=== PATIENT | female | born 1995 | race African-American/Black ===

== ENCOUNTER 2018-07-30 00:26 | Outpatient (CLI) | payer MEDICAID, SELFPAY ==
--- NOTE | 2018-07-30 07:50 | DI.US_ITS ---
Many abnormalities cannot be diagnosed. A normal exam does not exclude a congenital anomaly. Radiology No. LMP: Exam Date: 07/30/18 [facility] wks days on EDC ([facility]) Confirmed: HISTORY: ? MONOAMNIOTIC TWINS, 030.11 PREDICTED GESTATIONAL AGE NUMBER 7.3 weeks with a range of 6.3 week to 8.3 weeks. 2 Determined by___1STUS___LMP__X_CRL Info. pertaining to fetus # Baby A PLACENTA PRESENTATION Grade 0 Cephalic___ Anterior___Posterior___ Breech____ Right Left Transverse(head right___ Fundal___Low-lying___Previa___ Transverse(head left___ Varying BIOMETRY AMNIOTIC FLUID BPD: mm weeks Normal HC: mm weeks AC: mm weeks FL: mm weeks AMNIOTIC FLUID INDEX >26 WK CRL: 13 mm 7.3 weeks Cisterna Magna: mm CI: RUQ: LUQ Cerebellum: cm EFW: grams Percentile RLQ: LLQ Total: cms Composite AGE= 7.3 wks EDC by US___03/15/19 BIOPHYSICAL PROFILE ANATOMY IDENTIFIED SCORE 0/2 Heart: 4-Chamber___Rate:BPM__153___ LVOT: RVOT: Amniotic Fluid(>2cms)____ Stomach: Kidneys: Respirations (>30 secs) Bladder: Post. Fossa: Body Flex/Extension 3 vessel cord: Ventricles: cord insertion: Lips:____ Extremity Flex/Extension spinal morphology: Nose: Total Score= Palate: NS=not seen Many abnormalities cannot be diagnosed. A normal exam does not exclude a congenital anomaly. Radiology No. LMP: Exam Date: 07/30/18 [facility] wks days on EDC ([facility]) Confirmed: HISTORY: PREDICTED GESTATIONAL AGE NUMBER 7.3 weeks with a range of 6.3 week to 8.3 weeks. 2 Determined by___1STUS___LMP__X_CRL Info. pertaining to fetus # Baby B PLACENTA PRESENTATION Grade 0 Cephalic___ Anterior___Posterior___ Breech____ Right Left Transverse(head right___ Fundal___Low-lying___Previa___ Transverse(head left___ Varying BIOMETRY AMNIOTIC FLUID BPD: mm weeks Normal HC: mm weeks AC: mm weeks FL: mm weeks AMNIOTIC FLUID INDEX >26 WK CRL: 12 mm 7.3 weeks Cisterna Magna: mm CI: RUQ: LUQ Cerebellum: cm EFW: grams Percentile RLQ: LLQ Total: cms Composite AGE= 7.3 wks EDC by US 03/15/19____ BIOPHYSICAL PROFILE ANATOMY IDENTIFIED SCORE 0/2 Heart: 4-Chamber___Rate:BPM_150____ LVOT: RVOT: Amniotic Fluid(>2cms)____ Stomach: Kidneys: Respirations (>30 secs) Bladder: Post. Fossa: Body Flex/Extension 3 vessel cord: Ventricles: cord insertion: Lips:____ Extremity Flex/Extension spinal morphology: Nose: Total Score= Palate: NS=not seen Comparison is made with 07/10/17. Transabdominal and transvaginal exams were performed. A monochorionic diamniotic twin gestation is present. The crown rump length measurements correspond to 7 weeks 3 days. A 2 cm. left ovarian cyst is seen. The right ovary is unremarkable. IMPRESSION: Twin gestation which appears diamniotic and monochorionic. Both pole measurements correspond to 7 weeks 3 days.
== END 2018-07-30 00:46 ==
PROVIDERS: PCP Nurse Practitioner Family; Visit Provider Obstetrics & Gynecology
DX: O30.001 Twin pregnancy, unspecified number of placenta and unspecified number of amniotic sacs, first trimester (principal)
CPT/HCPCS: 76801; 76802

== ENCOUNTER 2018-08-22 10:33 | Outpatient (CLI) | payer MEDICAID, SELFPAY ==
[2018-08-22 11:05] LABS: Absolute Basophil Count 0.01 k/cumm (0.0-0.2); Absolute Eosinophil Count 0.04 k/cumm (0.0-0.7); Absolute Monocyte Count 0.38 k/cumm (0.11-0.7); Absolute Neutrophil Count 3.64 k/cumm (1.2-6.7); Basophils % 0.2; Eosinophils % 0.7; HCT 37.1 % (36.0-46.0); HGB 12.3 g/dL (12.0-15.5); Lymphocytes % 32.9; Mean Corp. HGB Concentration 33.2 g/dL (32.0-36.0); Mean Corpuscular Hemoglobin 26.1 pg (27.0-33.0); Mean Corpuscular Volume 78.6 fL (80-95); Mean Platelet Volume 10.8 fL (8.0-11.0); Monocytes % 6.3; Neutrophils % 59.9; Platelet Count 215 x1000/uL (130-400); RBC 4.72 m/cumm (4.00-5.20); RBC Distribution Width 14.7 % (11.7-14.6); White Blood Cell Count 6.07 k/cumm (4.4-10.8)
[2018-08-22 11:06] LABS: Glucose,1 Hr (Glucola) 97 mg/dL (80-140)
[2018-08-22 11:51] LABS: TSH (W/Ref FT4) 0.33 uIU/mL (0.358-3.74)
[2018-08-22 12:11] LABS: FREE T4 1.17 ng/dL (0.76-1.46)
[2018-08-24 11:34] LABS: HIV-1/2 Ag & Ab Screen Negative (NEGAT)
[2018-08-25 10:25] LABS: Hepatitis C Ab w Rflx HCV PCR Negative (NEGAT)
[2018-08-25 11:22] LABS: Hepatitis B Surface Ag Negative (NEGAT)
[2018-08-25 12:01] LABS: Rubella IgG Ab (UVM) Negative; Syphilis Serology (RPR) Negative (Negative)
[2018-08-25 12:57] LABS: Varicella IgG Antibody Equivocal
== END 2018-08-22 10:53 ==
PROVIDERS: PCP Nurse Practitioner Family; Visit Provider Advanced Practice Midwife
DX: Z34.91 Encounter for supervision of normal pregnancy, unspecified, first trimester (principal); O09.291 Supervision of pregnancy with other poor reproductive or obstetric history, first trimester; Z11.4 Encounter for screening for human immunodeficiency virus [HIV]; Z11.59 Encounter for screening for other viral diseases; Z01.84 Encounter for antibody response examination; Z11.3 Encounter for screening for infections with a predominantly sexual mode of transmission
CPT/HCPCS: 36415; 80055; 82950; 86787; 86803; 86850; 86900; 86901; 87340; 87389; 84439; 84443; 86592; 86762

== ENCOUNTER 2019-01-14 06:20 | Inpatient (IN) | payer MEDICAID, SELFPAY ==
[2019-01-14] MEDS: Oxytocin 10 UNITS/ML VIAL IM (06:54)
[2019-01-14] MEDS: Ketorolac 30 MG/ML VIAL (07:07)
[2019-01-14 07:28] LABS: HCT 33.4 % (36.0-46.0); HGB 11.3 g/dL (12.0-15.5); Mean Corp. HGB Concentration 33.8 g/dL (32.0-36.0); Mean Corpuscular Hemoglobin 26.6 pg (27.0-33.0); Mean Corpuscular Volume 78.6 fL (80-95); Mean Platelet Volume 11.7 fL (8.0-11.0); Platelet Count 160 x1000/uL (130-400); RBC 4.25 m/cumm (4.00-5.20); RBC Distribution Width 13.6 % (11.7-14.6); White Blood Cell Count 8.29 k/cumm (4.4-10.8)
[2019-01-14] MEDS: oxyCODONE 5 mg/Acetaminophen 325 mg TAB 2 TAB PO (07:32)
[2019-01-14 08:02] LABS: *AMPHETAMINES SCREEN URINE Negative (Negative); *BARBITURATES SCREEN URINE Negative (Negative); *BENZODIAZEPINES SCREEN URINE Negative (Negative); Cannabinoids THC Negative (Negative); Cocaine Screen,Urine Negative (Negative); METHADONE URINE SCREEN Negative (Negative); OPIATES URINE SCREEN Negative (Negative)
[2019-01-14 08:03] LABS: Tricyclic Antidepressants Negative (Negative)
--- NOTE | 2019-01-14 08:07 | W.PM.HP.N ---
Date of service: 01/14/19 Time of Service: 08:07 Assessment and Plan (1) Twin : Current visit: Yes Status: Acute Spontaneous labor and spontaneous vaginal delivery of diamniotic monochorionic twin gestation. Twins of will be stabilized and transported to the [facility]. Patient requests discharge today. We will make sure that she is hemodynamically stable prior to discharge. History of Present Illness Chief Complaint: labor 31 weeks 3 days Narrative: Patient is a 23-year-old G3, P1 female with monochorionic diamniotic twin gestation who awoke this morning approximately 05 45 and experienced significant vaginal pressure and uterine contractions. She presented to the emergency room at [facility] via ambulance and was diagnosed with labor and arrived on the center with advanced cervical dilatation. Shortly after arrival she had spontaneous vaginal delivery of a viable female infant. was handed off to waiting pediatric team. Second viable was delivered double footling breech without complications and was also cared for by the pediatric team. Currently weights and scores are pending. Placenta delivered spontaneously with a normal configuration blood loss 200 cc. She is sustained a first-degree labial laceration did not require repair. She is was administered oxytocin 10 mg IM after the second twin was born. Her admission labs are currently pending. Review of Systems Constitutional Reports as per [facility] Medical History Twin (Acute) Hx of pre-eclampsia in prior , currently (Acute) Goiter (Chronic) Wears glasses (Chronic) Chronic low back pain (Resolved 07/01/14) Depression (Chronic) History of illicit drug use (Acute) Tobacco abuse disorder (Acute) Preeclampsia in period (Resolved) Abscess of buttock, right (Resolved) Asthma (Resolved) Cutaneous abscess of buttock (Resolved 12/12/16) Dysmenorrhea (Resolved) General counselling and advice on contraception (Resolved 03/27/18) Menorrhagia (Resolved) CSA age 8 (Inactive) Surgical History Cholecystectomy (Resolved) Tooth extraction (Inactive) Social History Smoking/Tobacco Use Status: Current every day Alcohol Intake: former Drug use: Never Substance use type: former substance user Number of Children: 1 Do you feel safe in your relationship?: Yes Female Reproductive History Menstrual control method: none History History 3 Para 2 Hx # Term Pregnancies 2 Multiple births 0 Hx # Pregnancies 0 Ectopic pregnancies 0 AB induced 0 Hx Number of Living Children 1 AB spontaneous 0 Past Pregnancies Del. Date GA/Weeks # Outcome Route Wgt Sex Labor Lgth Anesthesia Location Prov Complic 12/01/16 37 No Unsuccessful vaginal 4 lb Female [facility] -[facility] 02/12/18 39 No Successful vaginal 7 lb 7 oz Female 8 hrs regional [place] - Dr. Tellez Delivery Date: 02/12/18 On 08/07/18 @ 13:25 Zaynab Cotter Infant name: Anne. IOL for gestational HTN Delivery Date: 12/01/16 On 08/07/18 @ 13:26 Zaynab Cotter IUFD diagnosed at presentation. Spontaneous labor delivered vaginally. Diagnosed with preeclampsia and treated with labetalol for several months . Positive UDS at the time of presentation in labor. Meds Home Medications Medication Instructions Recorded Confirmed Type vit no.95-ferrous 1 tab PO DAILY #90 tab-cap 07/17/18 01/07/19 Rx fumarate 28 mg-folic acid 800 mcg tablet aspirin 81 mg tablet,delayed 81 mg PO DAILY #90 tab 08/07/18 01/07/19 Rx release fluocinonide-emollient 0.05 % 1 applic TP BID #30 gm 01/07/19 01/07/19 Rx topical cream fluoxetine 40 mg capsule 40 mg PO DAILY #60 cap 01/07/19 01/07/19 Rx Allergies Allergy/AdvReac Type Severity Reaction Status Date / Time acetaminophen AdvReac Intermediate Nausea Unverified 01/07/19 14:45 ibuprofen AdvReac Intermediate Intestinal Unverified 01/07/19 14:45 Cramping NSAIDS (Non-Steroidal AdvReac Intermediate Nausea Unverified 01/07/19 14:45 Anti-Inflamma vicryl stitches AdvReac Intermediate infection Uncoded 01/07/19 14:45 in skin Exam Const General: in distress Nutritional Appearance: obese Orientation: alert, awake and oriented x3 OB/External & Speculum: Manual OB Exam: dilated 10, effaced fully and station '+3 Amniotic Fluid: meconium Results Labs : 01/14/19 07:02 Laboratory Results - last 24 hr 01/14/19 01/14/19 01/14/19 07:02 07:02 07:33 WBC 8.29 RBC 4.25 Hgb 11.3 L Hct 33.4 L MCV 78.6 L MCH 26.6 L MCHC 33.8 RDW 13.6 Plt Count 160 MPV 11.7 H Opiates Screen Cancelled Urine Opiates Screen Negative Blood Oxycodone Screen Cancelled Blood Methadone Screen Cancelled Urine Methadone Screen Negative Bld Barbiturates Scrn Cancelled Ur Barbiturates Screen Negative Ur Tricyclics Screen Negative Bld Phencyclidine Scrn Cancelled Bld Amphetamines Scrn Cancelled Ur Amphetamines Screen Negative Bl Methamphetamines Sn Cancelled Bl Benzodiazepine Scrn Cancelled U Benzodiazepines Scrn Negative Cocaine Screen Cancelled Urine Cocaine Screen Negative Bld Cannabinoid Screen Cancelled Ur THC Screen Negative U Rx/OTC Drugs Detect Ur Rx/OTC Suspect Drug Chain of Custody Drug Screen Comment Cancelled 01/14/19 Unknown WBC RBC Hgb Hct MCV MCH MCHC RDW Plt Count MPV Opiates Screen Urine Opiates Screen Blood Oxycodone Screen Blood Methadone Screen Urine Methadone Screen Bld Barbiturates Scrn Ur Barbiturates Screen Ur Tricyclics Screen Bld Phencyclidine Scrn Bld Amphetamines Scrn Ur Amphetamines Screen Bl Methamphetamines Sn Bl Benzodiazepine Scrn U Benzodiazepines Scrn Cocaine Screen Urine Cocaine Screen Bld Cannabinoid Screen Ur THC Screen U Rx/OTC Drugs Detect Cancelled Ur Rx/OTC Suspect Drug Cancelled Chain of Custody Cancelled Drug Screen Comment
--- NOTE | 2019-01-14 08:14 | HPE_ITS ---
Date of service: 01/14/19 Time of Service: 08:07 Assessment and Plan (1) Twin : Current visit: Yes Status: Acute Spontaneous labor and spontaneous vaginal delivery of diamniotic monochorionic twin gestation. Twins of will be stabilized and transported to the [facility]. Patient requests discharge today. We will make sure that she is hemodynamically stable prior to discharge. History of Present Illness Chief Complaint: labor 31 weeks 3 days Narrative: Patient is a 23-ye ar-old G3, P1 female with monochorionic diamniotic twin gestation who awoke this morning approximately 05 45 and experienced significant vaginal pressure and uterine contractions. She presented to the emergency room at [facility] via ambulance and was diagnosed with labor and arrived on the center with advanced cervical dilatation. Shortly after arrival she had spontaneous vaginal delivery of a viable female infant. Infant was handed off to waiting pediatric team. Second viable was delivered double footling breech without complications and was also cared for by the pediatric team. Currently weights and scores are pending. Placenta delivered spontaneously with a normal configuration blood loss 200 cc. She is sustained a first-degree labial laceration did not require repair. She is was administered oxytocin 10 mg IM after the second twin was born. Her admission labs are currently pending. Review of Systems Constitutional Reports as per [facility] Medical History Twin (Acute) Hx of pre-eclampsia in prior , currently (Acute) Goiter (Chronic) Wears glasses (Chronic) Chronic low back pain (Resolved 07/01/14) Depression (Chronic) History of illicit drug use (Acute) Tobacco abuse disorder (Acute) Preeclampsia in period (Resolved) Abscess of buttock, right (Resolved) Asthma (Resolved) Cutaneous abscess of buttock (Resolved 12/12/16) Dysmenorrhea (Resolved) General counselling and advice on contraception (Resolved 03/27/18) Menorrhagia (Resolved) CSA age 8 (Inactive) Surgical History Cholecystectomy (Resolved) Tooth extraction (Inactive) Social History Smoking/Tobacco Use Status: Current every day Alcohol Intake: former Drug use: Never Substance use type: former substance user Number of Children: 1 Do you feel safe in your relationship?: Yes Female Reproductive History Menstrual control method: none History History 3 Para 2 Hx # Term Pregnancies 2 Multiple births 0 Hx # Pregnancies 0 Ectopic pregnancies 0 AB induced 0 Hx Number of Living Children 1 AB spontaneous 0 Past Pregnancies Del. Date GA/Weeks # Outcome Route Wgt Sex Labor Lgth Anesthesia Location Prov Complic 12/01/16 37 No Unsuccessful vaginal 4 lb Female [facility] 02/12/18 39 No Successful vaginal 7 lb 7 oz Female 8 hrs regional [place] [facility] Dr. Tellez Delivery Date: 02/12/18 On 08/07/18 @ 13:25 Zaynab Cotter name: Anne. IOL for gestational HTN Delivery Date: 12/01/16 On 08/07/18 @ 13:26 Zaynab Cotter IUFD diagnosed at presentation. Spontaneous labor delivered vaginally. Diagnosed with preeclampsia and treated with labetalol for several months . Positive UDS at the time of presentation in labor. Meds Home Medications Medication Instructions Recorded Confirmed Type vit no.95-ferrous 1 tab PO DAILY #90 tab-cap 07/17/18 01/07/19 Rx fumarate 28 mg-folic acid 800 mcg tablet aspirin 81 mg tablet,delayed 81 mg PO DAILY #90 tab 08/07/18 01/07/19 Rx release fluocinonide-emollient 0.05 % 1 applic TP BID #30 gm 01/07/19 01/07/19 Rx topical cream fluoxetine 40 mg capsule 40 mg PO DAILY #60 cap 01/07/19 01/07/19 Rx Allergies Allergy/AdvReac Type Severity Reaction Status Date / Time acetaminophen AdvReac Intermediate Nausea Unverified 01/07/19 14:45 ibuprofen AdvReac Intermediate Intestinal Unverified 01/07/19 14:45 Cramping NSAIDS (Non-Steroidal AdvReac Intermediate Nausea Unverified 01/07/19 14:45 Anti-Inflamma vicryl stitches AdvReac Intermediate infection Uncoded 01/07/19 14:45 in skin Exam Const General: in distress Nutritional Appearance: obese Orientation: alert, awake and oriented x3 OB/External & Speculum: Manual OB Exam: dilated 10, effaced fully and station '+3 Amniotic Fluid: meconium Results Labs : 01/14/19 07:02 Laboratory Results - last 24 hr 01/14/19 01/14/19 01/14/19 07:02 07:02 07:33 WBC 8.29 RBC 4.25 Hgb 11.3 L Hct 33.4 L MCV 78.6 L MCH 26.6 L MCHC 33.8 RDW 13.6 Plt Count 160 MPV 11.7 H Opiates Screen Cancelled Urine Opiates Screen Negative Blood Oxycodone Screen Cancelled Blood Methadone Screen Cancelled Urine Methadone Screen Negative Bld Barbiturates Scrn Cancelled Ur Barbiturates Screen Negative Ur Tricyclics Screen Negative Bld Phencyclidine Scrn Cancelled Bld Amphetamines Scrn Cancelled Ur Amphetamines Screen Negative Bl Methamphetamines Sn Cancelled Bl Benzodiazepine Scrn Cancelled U Benzodiazepines Scrn Negative Cocaine Screen Cancelled Urine Cocaine Screen Negative Bld Cannabinoid Screen Cancelled Ur THC Screen Negative U Rx/OTC Drugs Detect Ur Rx/OTC Suspect Drug Chain of Custody Drug Screen Comment Cancelled 01/14/19 Unknown WBC RBC Hgb Hct MCV MCH MCHC RDW Plt Count MPV Opiates Screen Urine Opiates Screen Blood Oxycodone Screen Blood Methadone Screen Urine Methadone Screen Bld Barbiturates Scrn Ur Barbiturates Screen Ur Tricyclics Screen Bld Phencyclidine Scrn Bld Amphetamines Scrn Ur Amphetamines Screen Bl Methamphetamines Sn Bl Benzodiazepine Scrn U Benzodiazepines Scrn Cocaine Screen Urine Cocaine Screen Bld Cannabinoid Screen Ur THC Screen U Rx/OTC Drugs Detect Cancelled Ur Rx/OTC Suspect Drug Cancelled Chain of Custody Cancelled Drug Screen Comment
[2019-01-14] MEDS: miSOPROStol 200 MCG TAB 400 MCG SL (08:15)
--- NOTE | 2019-01-14 12:01 | PDOC.CMPRO ---
- If Service Date Differs Date of service: 01/14/19 Time of Service: 12:01 Care Management Progress Note CM was contacted by OB to set up transportation for Sugar to [facility] at discharge to be transported to be with her twins. CM contacted [facility] who will provide the transportation at 1230 this afternoon. Sugar will meet with Johnny the Plant And Maintenance Technician at [facility] to arrange stay at [facility] when she arrives. CM contact Johnny directly to provide Pt's support upon her arrival.
--- NOTE | 2019-01-14 14:06 | CMPROGNOTE_ITS ---
- If Service Date Differs Date of service: 01/14/19 Time of Service: 12:01 Care Management Progress Note CM was contacted by OB to set up transportation for Sugar to [facility] at discharge to be transported to be with her twins. CM contacted [facility] who will provide the transportation at 1230 this afternoon. Sugar will meet with Johnny the Hardware Engineering Manager at [facility] to arrange stay at [facility] when she arrives. CM contact Johnny directly to provide Pt's support upon her arrival.
[2019-01-15] MEDS: miSOPROStol 200 MCG TAB 400 MCG SL (15:54)
== END 2019-01-14 13:10 | disposition left against medical advice (07) | DRG 807 ==
PROVIDERS: Admitting Provider Obstetrics & Gynecology Gynecology; PCP Nurse Practitioner Family; Visit Provider Obstetrics & Gynecology Gynecology
DX: O60.14X2 Preterm labor third trimester with preterm delivery third trimester, fetus 2 (principal); Z37.2 Twins, both liveborn; O60.14X1 Preterm labor third trimester with preterm delivery third trimester, fetus 1; Z3A.31 31 weeks gestation of pregnancy; O32.8XX2 Maternal care for other malpresentation of fetus, fetus 2; O30.033 Twin pregnancy, monochorionic/diamniotic, third trimester; O99.334 Smoking (tobacco) complicating childbirth; Z53.21 Procedure and treatment not carried out due to patient leaving prior to being seen by health care provider; O77.0 Labor and delivery complicated by meconium in amniotic fluid; O62.3 Precipitate labor; F17.210 Nicotine dependence, cigarettes, uncomplicated
CPT/HCPCS: 36415; 80307; 85027; 99222; J1885; J2590; J3490

== ENCOUNTER 2019-04-21 13:21 | Outpatient (REF) | payer MEDICAID, SELFPAY ==
[2019-04-21 19:04] LABS: ALT 19 U/L (14-59); AST 13 U/L (15-37); Alkaline Phosphatase 64 U/L (46-116); Amylase 36 U/L (25-115); Anion Gap 8.4 mmol/L (3-11); BUN 10 mg/dL (7-18); Bilirubin, Total 0.3 mg/dL (0.2-1.0); CO2 25.6 mmol/L (21.0-32.0); CREATININE 0.73 mg/dL (0.55-1.02); Calcium 8.8 mg/dL (8.5-10.1); Chloride 106 mmol/L (98-107); Glucose 84 mg/dL (70-100); Lipase 99 U/L (73-393); Potassium 4.7 mmol/L (3.5-5.1); Sodium 140 mmol/L (136-145); TSH (W/Ref FT4) 0.42 uIU/mL (0.36-3.74); Total Protein 7.5 g/dL (6.4-8.2)
== END 2019-04-21 13:41 ==
LOC: NCHCN 13:21
PROVIDERS: Nurse Practitioner; PCP Nurse Practitioner Family; Visit Provider Nurse Practitioner Family
DX: R10.9 Unspecified abdominal pain (principal)
CPT/HCPCS: 80053; 83690; 82150; 84443

== ENCOUNTER 2019-05-11 01:03 | Outpatient (CLI) | payer MEDICAID, SELFPAY ==
--- NOTE | 2019-05-11 12:07 | DI.US_ITS ---
EXAM: US ABDOMEN CLINICAL HISTORY: ABDOMINAL PAIN R10.9. TECHNIQUE: Ultrasound performed using standard protocol. COMPARISON: US OB 1st trimester twins from 07/30/2018 FINDINGS: Visualized liver parenchyma is normal in appearance. There is no evidence biliary dilatation. Gallb ladder has been surgically removed. Kidneys and spleen are unremarkable. Abdominal aorta and IVC ar e of normal diameter. Pancreas appears intact as visualized. IMPRESSION: Negative abdominal ultrasound post cholecystectomy
== END 2019-05-11 01:23 ==
PROVIDERS: PCP Nurse Practitioner Family; Visit Provider Nurse Practitioner
DX: R10.9 Unspecified abdominal pain (principal); Z90.49 Acquired absence of other specified parts of digestive tract
CPT/HCPCS: 76700

== ENCOUNTER 2020-03-02 17:01 | Outpatient (REF) | payer MEDICAID, SELFPAY ==
[2020-03-05 14:21] LABS: SARS-CoV-2 RNA Undetected (Undetected); SARS-CoV-2 Specimen Source Nasopharynx
== END 2020-03-02 17:21 ==
LOC: NCHCN 17:01
PROVIDERS: PCP Nurse Practitioner Family; Visit Provider Nurse Practitioner Family
DX: J02.9 Acute pharyngitis, unspecified (principal)
CPT/HCPCS: U0003

== ENCOUNTER 2020-09-17 15:02 | Day surgery (SDC) | payer MEDICAID, SELFPAY ==
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
[2020-09-17 15:07] VITALS: BP 152/77; PULSE 60; RESP 18; TEMP 36.6; O2SAT 99
--- NOTE | 2020-09-17 15:39 | DI.RAD_ITS ---
EXAM: XR SOFT TISSUE NECK CLINICAL HISTORY: concern that needle broke off in neck, left side. TECHNIQUE: 2D digital imaging was performed. COMPARISON: No exams were available for comparison FINDINGS: There is radiopaque needle fragment which measures 14 millimeters in the subcutaneous tissues on the left side of the neck, this above the level of the 1st rib and far lateral to the C7 transverse proce ss left side this is subjacent to the metallic skin marker. IMPRESSION: DATA REPOSITORY: RADIATION DOSE DELIVERED:
--- NOTE | 2020-09-17 15:47 | DI.VRAD_ITS ---
PROCEDURE INFORMATION: Exam: XR Soft Tissue Neck Exam date and time: 09/17/2020 3:40 PM Age: 25 years old Clinical indication: Neck pain; Patient HX: Concern that needle broke off in neck left side. TECHNIQUE: Imaging protocol: XR of the soft tissues of the neck. COMPARISON: No relevant prior studies available. FINDINGS: Airway: Normal. No abnormal narrowing. Soft tissues: Needle fragment measuring approximately 1.4 cm in projects in subcutaneous tissues on the left side of the neck, above 1st rib and far lateral to level of C7. There is an adjacent rounded metallic density the skin likely a skin marker. Bones/joints: Unremarkable. IMPRESSION: Needle fragment measuring approximately 1.4 cm in projects in subcutaneous tissues on the left side of the neck, above the left 1st rib. Dictated and Authenticated by: Elsa Bateman MD. Ordering:PIO Guzmán MD
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
[2020-09-17 16:50] LABS: Abs Immature Grans 0.01 10^3/uL (0.0-0.06); Absolute Basophil Count 0.03 10^3/uL (0.0-0.2); Absolute Eosinophil Count 0.25 10^3/uL (0.0-0.7); Absolute Lymphocyte Count 2.01 10^3/uL (1.2-3.4); Absolute Neutrophil Count 2.14 10^3/uL (1.2-6.7); Basophils % 0.6; Eosinophils % 5.3; HCT 41.7 % (36.0-46.0); HGB 12.7 g/dL (11.2-15.7); Immature Grans % 0.2; Lymphocytes % 42.4; MCH 23.5 pg (27.0-33.0); MCHC 30.5 % (32.0-36.0); MCV 77.1 fL (80-95); Monocytes % 6.3; Neutrophils % 45.2; Nucleated RBC 0 %; Platelet Count 252 10^3/uL (130-400); RBC 5.41 10^6/uL (3.93-5.22); RDW 13.2 % (11.7-14.6); RDW-SD 36.5 fL; WBC 4.74 10^3/uL (4.4-10.8)
[2020-09-17 16:58] LABS: Source Nasopharynx
[2020-09-17 17:05] VITALS: BP 142/76; PULSE 62; RESP 16; TEMP 36.6; O2SAT 100
[2020-09-17 17:12] VITALS: BP 142/76; PULSE 62; RESP 16; TEMP 36.6; O2SAT 100
[2020-09-17 17:17] LABS: HCG Quant, Pregnancy 1 mIU/mL (1-3)
[2020-09-17 17:25] LABS: ALT 11 U/L (14-59); AST 12 U/L (15-37); Albumin 3.9 g/dL (3.4-5.0); Alkaline Phosphatase 53 U/L (46-116); Anion Gap 6.4 mmol/L (3-11); BUN 11 mg/dL (7-18); Bilirubin, Total 0.2 mg/dL (0.2-1.0); CO2 30.6 mmol/L (21.0-32.0); CREATININE 0.7 mg/dL (0.55-1.02); Calcium 8.9 mg/dL (8.5-10.1); Chloride 102 mmol/L (98-107); Glucose 79 mg/dL (74-106); Potassium 3.7 mmol/L (3.5-5.1); Sodium 139 mmol/L (136-145); Total Protein 8.5 g/dL (6.4-8.2)
[2020-09-17 17:42] LABS: COVID-19 PCR Negative (Negative); Influenza A PCR Negative (Negative); Influenza B PCR Negative (Negative); RSV PCR Negative (Negative)
--- NOTE | 2020-09-17 17:45 | DI.RAD_ITS ---
EXAM: XR SOFT TISSUE NECK CLINICAL HISTORY: broken needle in neck. TECHNIQUE: 2D digital imaging was performed. COMPARISON: No exams were available for comparison FINDINGS: Prostate was invited during removal of a foreign body in left side of the neck. Total fluoroscopy time 22 seconds; cumulative dose 1.50 mGy IMPRESSION: DATA REPOSITORY: RADIATION DOSE DELIVERED:
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
[2020-09-17 17:58] VITALS: BP 115/74; PULSE 63; RESP 22; TEMP 36.7; O2SAT 100
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
--- NOTE | 2020-09-17 18:18 | NUR.NOTE ---
Nursing Note: 1640--declined Covid test/Dr Rodrigues and anesthesia notified--Came to talk with pt--she became belligerent and was talking about leaving AMA. She did finally agree to have test which was collected without incident.
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
== END 2020-09-17 20:01 | disposition home or self-care (01) ==
LOC: ER 15:59 → DSU 17:12 → MS 18:02 → DSU 09-19 15:18
PROVIDERS: Physician Assistant; Emergency Provider Physician Assistant; PCP Nurse Practitioner; Visit Provider Surgery
PROC: (CPT 10120; principal; 2020-09-17 17:00)
DX: S10.85XA Superficial foreign body of other specified part of neck, initial encounter (principal); W45.8XXA Other foreign body or object entering through skin, initial encounter; F11.90 Opioid use, unspecified, uncomplicated; F32.9 Major depressive disorder, single episode, unspecified; F17.210 Nicotine dependence, cigarettes, uncomplicated; J45.909 Unspecified asthma, uncomplicated
CPT/HCPCS: 10120; 36415; 76000; 80053; 86850; 86900; 86901; 99221; 99238; 99285; 70360; 84702; 85025; 99284; J0690

== ENCOUNTER 2020-09-17 18:31 | Emergency (ER) | payer MEDICAID, SELFPAY ==
[2020-09-17 18:41] VITALS: BP 128/81; PULSE 77; RESP 16; O2SAT 98
--- NOTE | 2020-09-17 18:46 | NUR.NOTE ---
Nursing Note: Referral faxed to PCP for follow up on 09/19 or 09/20. Elizabeth Carlos
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
[2020-09-17] MEDS: Bacitracin 30 GM TUBE TP (19:11)
--- NOTE | 2020-09-17 19:12 | NUR.NOTE ---
Pt eval by YA Guillen and Ghanshyam, wound nurse. LLE wound cleaned with NS, bacitracin and mepilex applied, bulky dsg wrap. Wound care discussed with pt. aware to f/u with pcp this week. provided with additional supplies for several days of dsg changes. Calling for ride home. Provided with juice, viviana crackers.
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
== END 2020-09-17 19:35 | disposition home or self-care (01) ==
PROVIDERS: Emergency Provider Physician Assistant; PCP Nurse Practitioner
DX: T24.202A Burn of second degree of unspecified site of left lower limb, except ankle and foot, initial encounter (principal); X16.XXXA Contact with hot heating appliances, radiators and pipes, initial encounter; Z91.19 Patient's noncompliance with other medical treatment and regimen
CPT/HCPCS: 99282

== ENCOUNTER 2021-01-17 16:35 | Outpatient (REF) | payer MEDICAID, SELFPAY ==
--- NOTE | 2021-01-17 16:00 | PAPFT_PTH ---
PATIENT: Sugar Craven LOC: [facility] U#:[id number] AGE/SX: 25/F ROOM: RE01/17/[address]: Tracy Em : 1995 BED: DIS: 01/17/2021 SPEC #: [id number] RECD: 01/17/21 18:38 STATUS: ESVIN TAI #: [id number] MARIUSZ: 01/17/21 16:[address]: Tracy Em DEPT: [facility] Cytology RECD BY: Zaina Douglas ENTERED: 01/17/21 18:39 SP TYPE: PAPFT OTHR DR: Aurora Howell Tissues: 1 - CX/ENDOCX FOR PAP SMEARS Procedures: PAP THIN PREP/UVM Screening Comments: [id number]
[2021-01-18 16:31] LABS: Chlamydia Result Negative (Negative); GC Result Negative (Negative)
== END 2021-01-17 16:36 | disposition home or self-care (01) ==
LOC: LBN 16:35
PROVIDERS: PCP Nurse Practitioner; Visit Provider Obstetrics & Gynecology Gynecology
DX: Z12.4 Encounter for screening for malignant neoplasm of cervix (principal); Z11.3 Encounter for screening for infections with a predominantly sexual mode of transmission
CPT/HCPCS: 87491; 87591; 88142

== ENCOUNTER 2021-01-18 02:25 | Outpatient (CLI) | payer MEDICAID, SELFPAY ==
[2021-01-18 14:28] LABS: TSH (W/Ref FT4) 0.63 uIU/mL (0.36-3.74)
[2021-01-19 10:31] LABS: HIV-1/2 Ag & Ab Screen Negative (Negative)
[2021-01-19 11:11] LABS: Hepatitis C Ab w Rflx HCV PCR Reactive (Negative)
[2021-01-20 13:22] LABS: HCV RNA Qualitative Undetected (Undetected)
== END 2021-01-18 02:26 | disposition home or self-care (01) ==
LOC: LBO 02:25
PROVIDERS: PCP Nurse Practitioner; Visit Provider Obstetrics & Gynecology Gynecology
DX: E03.9 Hypothyroidism, unspecified (principal); Z11.3 Encounter for screening for infections with a predominantly sexual mode of transmission; Z11.4 Encounter for screening for human immunodeficiency virus [HIV]; Z11.59 Encounter for screening for other viral diseases
CPT/HCPCS: 36415; 86803; 87389; 87522; 84443

== ENCOUNTER 2023-03-04 03:46 | Emergency (ER) | payer MEDICAID, SELFPAY ==
[2023-03-04 03:47] VITALS: BP 132/84; PULSE 77; RESP 14; TEMP 36.5; O2SAT 99
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
--- NOTE | 2023-03-04 04:16 | NUR.NOTE ---
Pt refused to give a urine sample, JASIEL
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
--- NOTE | 2023-03-04 05:00 | NUR.NOTE ---
Pt refused IV, fluids, and pain meds, FPJ
[2023-03-04 05:01] VITALS: BP 130/80; PULSE 72; RESP 14; O2SAT 99
== END 2023-03-04 05:00 | disposition home or self-care (01) ==
LOC: ER 05:05
PROVIDERS: Emergency Provider Emergency Medicine; PCP Nurse Practitioner
DX: S00.83XA Contusion of other part of head, initial encounter (principal); Y08.89XA Assault by other specified means, initial encounter
CPT/HCPCS: 80048; 90471; 99284; 70450; 70486; 80320; 84703; 85025

== ENCOUNTER 2024-10-13 19:45 | Inpatient (IN) | payer MEDICAID, SELFPAY ==
[2024-10-13] VITALS (30 sets, daily range): BP systolic 90–117; BP diastolic 45–61; PULSE 83–109; RESP 8–23; TEMP 36.8–36.9; O2SAT 96–100
--- NOTE | 2024-10-13 20:15 | RT.EKG_ITS ---
APPROVED REPORT Exam: Resting ECG Reason for Exam: chest pain Patient Location: E HR:88 bpm ECG Measurements Heart Rate 88 AXIS AK 154 P 28 QRSd 106 QRS 60 QT 362 T 3 QTc 439 Conclusion Sinus rhythm 88 normal axis no stemi
[2024-10-13 20:27] LABS: HCT 34.2 % (36.0-46.0); HGB 11.5 g/dL (11.2-15.7); MCH 24.9 pg (27.0-33.0); MCHC 33.6 % (32.0-36.0); MCV 74 fL (80-95); MPV 10.4 fL (8.0-11.0); Platelet Count 235 10^3/uL (130-400); RBC 4.62 10^6/uL (3.93-5.22); RDW 13.6 % (11.7-14.6); RDW-SD 36.3 fL; WBC 15.73 10^3/uL (4.4-10.8)
[2024-10-13 20:28] LABS: Lactate 3.3 mmol/L (<or=2.0)
[2024-10-13 20:32] LABS: ESR 61 mm/hr (0-20)
[2024-10-13 20:39] LABS: Absolute Lymphocyte Count 1.26 10^3/uL (1.2-3.4); Absolute Monocyte Count 1.42 10^3/uL (0.1-0.8); Absolute Neutrophil Count 13.06 10^3/uL (1.2-6.7)
--- NOTE | 2024-10-13 20:39 | NUR.NOTE ---
this RN attempted to get second set of BC. 2nd RN will attempt prior to starting ABX Nursing Note:
[2024-10-13 20:40] LABS: Diff Comment Manual Differential; Hypochromasia 2+; Microcytosis 3+
[2024-10-13] MEDS: Normal Saline 1,000 ML 1000 ML IV ×2 (20:40→23:37)
[2024-10-13 20:47] LABS: ALT 20 U/L (14-59); AST 30 U/L (15-37); Albumin 2.8 g/dL (3.4-5.0); Alkaline Phosphatase 104 U/L (46-116); Anion Gap 10.8 mmol/L (3-11); BUN 25 mg/dL (7-18); Bilirubin, Total 0.6 mg/dL (0.2-1.0); C-Reactive Protein 20.26 mg/dL (<or=0.5); CO2 27.2 mmol/L (21.0-32.0); CREATININE 1.3 mg/dL (0.55-1.02); Calcium 8.6 mg/dL (8.5-10.1); Chloride 92 mmol/L (98-107); Estimated GFR 57.09 (mL/min/1.73m2); Glucose 97 mg/dL (74-106); Sodium 130 mmol/L (136-145); Total Protein 7.5 g/dL (6.4-8.2)
[2024-10-13] MEDS: Omnipaque 350 MG/ML 100 ML BTL IJ (20:48)
[2024-10-13] MEDS: Normal Saline - Diluent 50 ML VIAL IJ (20:49)
[2024-10-13] MEDS: Normal Saline Flush 10 ML SYR IVP (20:49)
--- NOTE | 2024-10-13 20:49 | NUR.NOTE ---
PT is unable to urinate for sample. Nursing Note:
[2024-10-13 20:50] LABS: Potassium 2.7 mmol/L (3.5-5.1)
[2024-10-13 21:02] LABS: Troponin I 7 ng/L (<or=51)
[2024-10-13 21:07] LABS: Magnesium 1.7 mg/dL (1.8-2.4)
[2024-10-13 21:20] LABS: HCG Qual (Serum) Negative
--- NOTE | 2024-10-13 21:44 | NUR.NOTE ---
2130 PT to CTNursing Note:
[2024-10-13 21:52] LABS: *AMPHETAMINES SCREEN URINE Negative (Negative); *BARBITURATES SCREEN URINE Negative (Negative); *BENZODIAZEPINES SCREEN URINE Negative (Negative); Cannabinoids THC Positive (Negative); Cocaine Screen,Urine Positive (Negative); METHADONE URINE SCREEN Negative (Negative); OPIATES URINE SCREEN Negative (Negative)
[2024-10-13 21:54] LABS: Tricyclic Antidepressants Negative (Negative)
--- NOTE | 2024-10-13 21:54 | NUR.NOTE ---
PT returned from CT Nursing Note:
[2024-10-13] MEDS: POTASSIUM CHLORIDE 20 MEQ/100 ML BAG 50 MEQ IV_INF (22:07)
--- NOTE | 2024-10-13 22:20 | DI.CT_ITS ---
Exam(s) CT UPPER EXTREMITY RT W EXAM: CT UPPER EXTREMITY RT W CLINICAL HISTORY: cellulitis right arm, entire arm indurationed TECHNIQUE: Imaging Protocol: Axial computed tomography images with coronal and sagittal reformatted images were created and reviewed. CONTRAST MATERIAL: Intravenous: Omnipaque 350 Contrast volume:structured data in ml Contrast route:I V - COMPARISON: No exams were available for comparison FINDINGS: Bones: There is no evidence of fracture or dislocation. Bony alignment is satisfactory. No osteomyelitic changes are identified. There is no evidence of joint space narrowing or cystic degeneration seen. No lytic or sclerotic lesions are identified. Soft Tissues: Diffuse soft tissue edema consistent with cellulitis. Small focal fluid collection in the anterior distal deltoid muscle measuring 1.3 by 1.3 by 2.7 cm cat picious for small abscess. Additional higher density ovoid area in the anterior soft tissues anterio r to the biceps muscle measuring 2.5 cm appears to be associated with superficial veins which are thr ombosed. Additional fluid collection seen in the antecubital fossa measuring roughly 2 cm, also cat picious for abscess. Vasculature: The axillary vein is distended and shows filling defect consistent with thrombosis. The thrombus also extends to involve the branches of the brachial and basilic veins to the level of the elbow, with extension into the medial cubital vein. The cephalic vein also shows thrombus down to t he level of the wrist. Hand vessels are not well evaluated due to small size.. IMPRESSION: Extensive right upper extremity cellulitis with 2 small abscesses. Deep venous thrombosis is well as superficial venous thrombosis. RADIATION DOSE DELIVERED: 1,108.73mGy.cm Total DLP DATA REPOSITORY: All CT scans at this facility are submitted to the National Radiology Data Registry (NRDR) Dose Index Registry (DIR) with the [employer] ([employer]). RADIATION OPTIMIZATION: All CT scans at this facility use at least one of these dose optimization te chniques: automated exposure control; mA and/or kV adjustment per patient size (includes targeted exa ms where dose is matched to clinical indication); or iterative reconstruction.
--- NOTE | 2024-10-13 22:21 | DI.CT_ITS ---
Exam(s) CT CHEST PE CTA EXAM: CT CHEST PE CTA CLINICAL HISTORY: chest pain, IVDA, swollen right arm. TECHNIQUE: Imaging Protocol: Axial CT angiography was performed with multi-slice acquisition and mu lti-planar reconstructions as well as axial, coronal and sagittal MIP reconstructions. Computer aided detection (CAD) was utilized. CONTRAST MATERIAL: Intravenous: Omnipaque 350 Contrast volume:100 ml COMPARISON: US US ABDOMEN from 05/11/[address] UPPER EXTREMITY RT W from 10/13/2024 FINDINGS: Pulmonary Arteries: No evidence of filling defect to suggest pulmonary emboli. Mediastinum and Tracey: No dominant adenopathy or fluid collection. Pulmonary parenchyma: No consolidation or dominant measurable mass. Pleura: No effusion or pneumothorax. Heart: The heart is not dilated. No coronary artery calcifications are seen. Aorta: Thoracic aorta non-dilated. No dissection. Upper abdomen: No acute findings. Bones: Unremarkable for age. Tubes, Catheters, and Lines: None Soft tissues: Unremarkable. IMPRESSION: No evidence of pulmonary embolism or other acute abnormality.. RADIATION DOSE DELIVERED: 1,108.73mGy.cm Total DLP DATA REPOSITORY: All CT scans at this facility are submitted to the National Radiology Data Registry (NRDR) Dose Index Registry (DIR) with the [employer] ([employer]). RADIATION OPTIMIZATION: All CT scans at this facility use at least one of these dose optimization te chniques: automated exposure control; mA and/or kV adjustment per patient size (includes targeted exa ms where dose is matched to clinical indication); or iterative reconstruction.
[2024-10-13] MEDS: HYDROmorphone 2 MG/ML SYR 1 MG IVP (22:37)
[2024-10-13] MEDS: VANCOMYCIN 2,000 MG in Normal Saline 500 ML 250 MG IVPB (22:41)
[2024-10-13] MEDS: Lidocaine 1% Pres-Free W/EPI 1/200,000 30 ML VIAL IJ (22:44)
[2024-10-13 23:00] LABS: Troponin I 7 ng/L (<or=51)
--- NOTE | 2024-10-13 23:00 | NUR.NOTE ---
PT provided with foodNursing Note:
[2024-10-13] MEDS: Potassium Chloride 20 MEQ TABCR 40 MEQ PO (23:09)
--- NOTE | 2024-10-13 23:10 | HPE_ITS ---
Date of service: 10/13/24 Time of Service: 23:10 Assessment and Plan Assessment and plan (1) Severe sepsis: Status: Acute Assessment and plan: -patient met criteria for severe sepsis on admission with HR ~110bpm, WBC 15, source of infection being RUE cellulitis and abscess, HEDY with Cr 1.3 (baseline ~0.6) and lactic acid of 3.3 -CT of RUE showed -patient started on vanc and zosyn in ED, will switch to vanc and cefepime given HEDY and risk of worsening kidney function with vanc/zosyn combo -f/u blood cultures -f/u repeat lactic acid -Surgery consult placed -abscess drained in ED, follow-up wound culture results (2) Cellulitis: Status: Acute Assessment and plan: -source of infection as noted above (3) Abscess of right upper extremity: Status: Acute Assessment and plan: -source of infection as noted above (4) HEDY (acute kidney injury): Status: Acute Assessment and plan: -secondary to infection as noted above -f/u AM BMP (5) Lactic acidosis: Status: Acute Assessment and plan: -secondary to severe sepsis as noted above -f/u repeat LA (6) Deep vein thrombosis (DVT) of axillary vein of right upper extremity: Status: Acute Assessment and plan: - As seen on CT of right upper extremity -Patient was started on 10 mg twice daily of Eliquis, will continue prior to transition of 5 mg maintenance (7) IV drug user: Status: Acute Assessment and plan: -likely reason or infection as patient stated she injected IV drugs into her right AC History of Present Illness History of Present Illness Chief Complaint: Pain and swelling in right upper extremity Narrative: 29-year-old female with past medical history of hepatitis C, IV drug use, depression who presented the emergency department with right upper extremity swelling for about 5 days. Patient states that she injected Suboxone in her right upper extremity about 5 days ago since that time she has had increased swelling and pain in that right upper extremity. She also noted some areas of peeling skin in her right antecubital fossa where she injected with painful lumps underneath her skin. She denied any drainage, fevers, headache, lightheadedness, dizziness, chest pain, nausea vomiting or diarrhea. In the emergency department the patient was noted as being tachycardic with otherwise normal vital signs. Right upper extremity had significant erythema and swelling in the area of the right antecubital fossa with areas of fluctuance as well as significant swelling all the way down to her hand. CBC showed a white count of 15,000, creatinine was 1.3, potassium 2.7 and a lactic of 3.3. Patient was started on vancomycin and Zosyn in the emergency department. Patient had CT chest and right upper extremity which showed no evidence of cardiopulmonary disease or more specifically sick emboli of the right upper extremity did show right axillary DVT, and ventral soft tissue right upper extremity 2 by 4 x 1 x 6 cm abscess. An abscess was drained in the emergency department and cultures were sent. At which time emergency room PA paged hospitalist for admission for patient with severe sepsis secondary to right upper extremity cellulitis, abscess and right upper extremity DVT. Review of Systems All systems reviewed & are unremarkable except as noted in HPI and below PFSH All Active Problems (Updated 10/14/24 @ 06:50 by Didier Jaimes MD) Deep vein thrombosis (DVT) of axillary vein of right upper extremity (Acute) IV drug user (Acute) Lactic acidosis (Acute) HEDY (acute kidney injury) (Acute) Abscess of right upper extremity (Acute) Cellulitis (Acute) Severe sepsis (Acute) Encounter for Nexplanon removal (Acute) Hepatitis C antibody test positive (Acute) 12/2020. No viral load detected Patient desires (Acute) Routine screening for STI (sexually transmitted infection) (Acute) Foreign body (Acute) Irregular menses (Acute) Wears glasses (Chronic) with other poor obstetric history (Acute) 2017 IUFD at 37 weeks. Preeclampsia treated with labetalol . Positive UDS at time of delivery. Depression (Chronic) many years. 02/2018 restarted Fluoxetine at time of 6w PP visit. 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 Quit. Tobacco abuse disorder (Acute) Medical History (Updated 10/14/24 @ 06:50 by Didier Jaimes MD) Twin Hx of pre-eclampsia in prior , currently 2016. Present at time of admission for IUFD. Treated with labetalol for several months . 2018. IOL at term for elevated BP. LMP 05/23/2018 Cutaneous abscess of buttock (12/12/16) General counselling and advice on contraception (03/27/18) Declines all BC after 01/2018. Given written info on NFP. Goiter (04/30/13) Abscess of buttock, right Asthma Mild, exercise induced. Several years since use of inhalant. Dysmenorrhea Menorrhagia CSA age 8 Surgical History (Updated 01/17/21 @ 16:22 by Tracy Ruano MD) Tooth extraction [place] teeth age 18. No complications with anesthesia. Cholecystectomy 2008, open Family History Mother Diabetes Essential hypertension Heart disease Diverticula of small intestine Asthma Father Cirrhosis Hypertension Grandmother Diabetes Heart disease Hypertension Asthma Maternal Aunt Heart disease x2 Hypertension Brother Hypertension Social History (Updated 01/17/21 @ 16:27 by Tracy Ruano MD) Smoking/Tobacco Use Status: Current every day Smoking risk assessment performed?: Yes Alcohol Intake: former Drug use: Occasionally Substance use type: heroin Details: 01/17/21. pt reports no use in 3mo. Both she and her brother Frank have quit together Household members: family, children and other Details: Mother and Daughter Jessica &Twins not in her custody (per DCF order) Housing: homeless Number of Children: 3 Communication Needs: None and Corrective Lenses current occupation: Not working. Do you feel safe at home: Yes Do you feel safe in your relationship?: Yes Additional Social history: 12/2020. she and her brother Frank have moved to [facility] to live with youngest brother Arcadio. she and Frank have quit heroin x2mo. Arcadio does not use heroin. Pt's BF Alfie is being released from custodial in 01/2021. Female Reproductive History Menstrual control method: none History History 2 3 Para 3 Hx # Term Pregnancies 2 Multiple births 1 Hx # Pregnancies 1 Ectopic pregnancies 0 AB induced 0 Hx Number of Living Children 3 AB spontaneous 0 Past Pregnancies Del. Date GA/Weeks # Preg Succ Route Wgt Sex Labor Lgth Anesth esia Location Prov Complic 12/01/16 37 No vaginal 4 lb Female [facility] 02/12/18 39 No vaginal 7 lb 7 oz Female 8 hrs [facility] Tellez 01/14/19 30 Yes vaginal 3 lb 14 oz Female [facility] 01/14/19 30 Yes vaginal 4 lb 4 oz Female Tracy Ruano Delivery Date: 12/01/16 Last Updated by: Tracy Ruano M.D. IUFD diagnosed at presentation. ? name Shavonne. Spontaneous labor delivered vaginally. Diagnosed with preeclampsia and treated with labetalol for several months . Positive UDS at the time of presentation in labor. Delivery Date: 02/12/18 Last Updated by: Tracy Ruano M.D. name: Jessica IOL for gestational HTN Delivery Date: 01/14/19 Last Updated by: Tracy Ruano M.D. Faviola. Transfered to [facility] after delivery 2/2 prematurity. remained x2mo Delivery Date: 01/14/19 Last Updated by: Tracy Ruano M.D. Anusha. transfered to NICU at [facility] . Discharged after 2mo. Meds Allergies and Home Medications Allergies Allergy/AdvReac Type Severity Reaction Status Date / Time acetaminophen AdvReac Intermediate Nausea Verified 10/13/24 19:56 ibuprofen AdvReac Intermediate Intestinal Verified 10/13/24 19:56 Cramping NSAIDS (Non-Steroidal AdvReac Intermediate Nausea Verified 10/13/24 19:56 Anti-Inflamma vicryl stitches AdvReac Intermediate infection Uncoded 10/13/24 19:56 in skin Home Medications ?Medication ?Instructions ?Recorded ?Confirmed ?Type fluoxetine 40 mg capsule (Prozac) 40 mg PO DAILY #60 caps 01/07/19 10/13/24 Rx [id number] fum 28 mg 1 cap PO DAILY #90 caps 01/17/21 10/13/24 Rx iron-folic acid 1 mg-omg3 200 mg capsule (C-Alex DHA) Exam Narrative Exam Narrative: Well-appearing young female laying in bed in no acute distress, ANO x 4, heart regular rhythm, lungs clear auscultation bilaterally, abdomen soft, nontender, nondistended, right upper extremity with significant swelling below the elbow with area surrounding antecubital fossa wrapped and bandaged without surrounding erythema or drainage Results Labs 10/13/24 20:10 10/13/24 20:10 Labs: Laboratory Results - last 24 hr 10/13/24 10/13/24 10/13/24 20:10 20:19 21:21 WBC 15.73 H RBC 4.62 Hgb 11.5 Hct 34.2 L MCV 74 L MCH 24.9 L MCHC 33.6 RDW 13.6 Plt Count 235 MPV 10.4 Immature Gran % 0.0 Neutrophils % 83.0 Lymphocytes % 8.0 Monocytes % 9.0 Eosinophils % 0.0 Basophils % 0.0 Nucleated RBC % 0.0 Absolute Neutrophils 13.06 H Absolute Lymphocytes 1.26 Absolute Monocytes 1.42 H Absolute Eosinophils 0.00 Absolute Basophils 0.00 RBC Morphology See Below Hypochromasia 2+ Microcytosis 3+ ESR 61 H VBG Lactate 3.3 H* Sodium 130 L Potassium 2.7 L* Chloride 92 L Carbon Dioxide 27.2 Anion Gap 10.8 BUN 25 H Creatinine 1.3 H Est GFR (CKD-EPI 2020) 57.09 Glucose 97 Calcium 8.6 Magnesium 1.7 L Total Bilirubin 0.6 AST 30 ALT 20 Alkaline Phosphatase 104 Troponin I 7 C-Reactive Protein 20.26 H Total Protein 7.5 Albumin 2.8 L Serum HCG, Qual Negative Urine Opiates Screen Negative Urine Methadone Screen Negative Ur Barbiturates Screen Negative Ur Tricyclics Screen Negative Ur Amphetamines Screen Negative U Benzodiazepines Scrn Negative Urine Cocaine Screen Positive A Ur THC Screen Positive A Last Vital Signs Temp 98.3 F 10/13/24 19:53 Pulse 95 H 10/13/24 22:41 Resp 14 10/13/24 22:50 BP 104/54 L 10/13/24 20:31 Pulse Ox 96 10/13/24 22:41 Time Spent Time spent with Patient: >75 minutes Time was spent: preparing to see the patient(eg.review tests), obtaining and/or reviewing separately otained hiistory, ordering medications,tests, procedures, referring, communicating with other health client care manager, indepentently interpreting results, counseling the patient and care coordination
--- NOTE | 2024-10-13 23:10 | ED.GENADUL_ITS ---
Discharge Plan Discharge Details Chief Complaint: [facility]Medical Primary Care Provider: None,None ED Provider: Zaina Guillen Home Meds and New Rx's Prescriptions: No Action fluoxetine [Prozac] 40 mg capsule 40 mg PO DAILY Qty: 60 6RF Patient Comments: not taking C-Alex DHA 28 mg iron-1 mg -200 mg capsule 1 cap PO DAILY Qty: 90 4RF Patient Comments: not taking HPI General Date/Time Provider Initiated Documentation: 10/13/24 19:57 . HPI Narrative: 29-year-old female with hepatitis C, IV drug abuse, and depression, presenting with swelling and pain in her right arm after injecting prescribed Suboxone 5 days ago. Entire right arm swollen and painful but tolerable. No opiates injected in past 3 years aside from Suboxone. Smokes crack cocaine occasionally, last use in August. Daily tobacco use with occasional shortness of breath. No history of endocarditis or sharing needles. No calf pain, swelling, additional lesions, or fever, but has experienced chills. Experienced chest pain and shortness of breath while running to find her clinical operations consultant en route to clinic. Related Data Home Medications ?Medication ?Instructions ?Recorded ?Confirmed fluoxetine 40 mg capsule (Prozac) 40 mg PO DAILY #60 caps 01/07/19 10/13/24 [id number] fum 28 mg 1 cap PO DAILY #90 caps 01/17/21 10/13/24 iron-folic acid 1 mg-omg3 200 mg capsule (C-Alex DHA) Previous Rx's ?Medication ?Instructions ?Recorded fluoxetine 40 mg capsule (Prozac) 40 mg PO DAILY #60 caps 01/07/19 [id number] fum 28 mg 1 cap PO DAILY #90 caps 01/17/21 iron-folic acid 1 mg-omg3 200 mg capsule (C-Alex DHA) Allergies Allergy/AdvReac Type Severity Reaction Status Date / Time acetaminophen AdvReac Intermediate Nausea Verified 10/13/24 19:56 ibuprofen AdvReac Intermediate Intestinal Verified 10/13/24 19:56 Cramping NSAIDS (Non-Steroidal AdvReac Intermediate Nausea Verified 10/13/24 19:56 Anti-Inflamma vicryl stitches AdvReac Intermediate infection Uncoded 10/13/24 19:56 in skin General Stated Complaint: GenMedical ALEXIS: 3 Exam Narrative Exam Narrative: General Appearance: Alert and oriented, not in acute distress. Vital signs: Blood pressure 117/55 at reassessment. HEENT: Within normal limits. Respiratory: Lungs clear to auscultation. Cardiovascular: Sinus tachycardia without murmur. Lymphatic: Right arm significantly swollen and erythematous with fluctuant abscess in AC region extending lymphangitis to axillary region. Back, Musculoskeletal: Preserved elbow range of motion. Extremities: Another lesion near wrist. Strong radial pulse, intact sensation. No crepitus. No lesions on lower extremity or left upper extremity. Skin: Within normal limits. Neurological: Normal. Course Vital Signs Vital signs: Vital Signs Temperature 36.9 C 10/13/24 19:46 Pulse 109 H 10/13/24 19:46 Respiratory Rate 18 10/13/24 19:46 Blood Pressure 98/61 L 10/13/24 19:46 Pulse Oximetry 97 10/13/24 19:46 Temperature 36.8 C 10/13/24 19:53 Temperature Source Oral 10/13/24 19:53 Pulse 95 H 10/13/24 22:41 Pulse 91 H 10/13/24 22:50 Respiratory Rate 14 10/13/24 22:50 Respiratory Effort Normal 10/13/24 19:53 Respiratory Pattern Normal 10/13/24 19:53 Blood Pressure 104/54 L 10/13/24 20:31 Blood Pressure Mean 70 10/13/24 20:31 Blood Pressure Position Sitting 10/13/24 19:46 Pulse Oximetry 96 10/13/24 22:41 Pain Level 10 10/13/24 19:53 Lab/Test Results Lab/Test Results: 10/13/24 21:20 Blood Blood Culture - Pending 10/13/24 20:10 Blood Blood Culture - Pending Laboratory Tests Range/Units 10/13/24 10/13/24 10/13/24 20:10 20:19 21:21 WBC (4.4-10.8) 10^3/uL 15.73 H RBC (3.93-5.22) 10^6/uL 4.62 Hgb (11.2-15.7) g/dL 11.5 Hct (36.0-46.0) % 34.2 L MCV (80-95) fL 74 L MCH (27.0-33.0) pg 24.9 L MCHC (32.0-36.0) % 33.6 RDW (11.7-14.6) % 13.6 Plt Count (130-400) 10^3/uL 235 MPV (8.0-11.0) fL 10.4 Immature Gran % % 0.0 Neutrophils % % 83.0 Lymphocytes % % 8.0 Monocytes % % 9.0 Eosinophils % % 0.0 Basophils % % 0.0 Nucleated RBC % (0.0-0.3) % 0.0 Absolute Neutrophils (1.2-6.7) 10^3/uL 13.06 H Absolute Lymphocytes (1.2-3.4) 10^3/uL 1.26 Absolute Monocytes (0.1-0.8) 10^3/uL 1.42 H Absolute Eosinophils (0.0-0.7) 10^3/uL 0.00 Absolute Basophils (0.0-0.2) 10^3/uL 0.00 RBC Morphology See Below Hypochromasia 2+ Microcytosis 3+ ESR (0-20) mm/hr 61 H VBG Lactate (<or=2.0) mmol/L 3.3 H* Sodium (136-145) mmol/L 130 L Potassium (3.5-5.1) mmol/L 2.7 L* Chloride (98-107) mmol/L 92 L Carbon Dioxide (21.0-32.0) mmol/L 27.2 Anion Gap (3-11) mmol/L 10.8 BUN (7-18) mg/dL 25 H Creatinine (0.55-1.02) mg/dL 1.3 H Est GFR (CKD-EPI 2020) (mL/min/1.73m2) 57.09 Glucose (74-106) mg/dL 97 Calcium (8.5-10.1) mg/dL 8.6 Magnesium (1.8-2.4) mg/dL 1.7 L Total Bilirubin (0.2-1.0) mg/dL 0.6 AST (15-37) U/L 30 ALT (14-59) U/L 20 Alkaline Phosphatase (46-116) U/L 104 Troponin I (<or=51) ng/L 7 C-Reactive Protein (<or=0.5) mg/dL 20.26 H Total Protein (6.4-8.2) g/dL 7.5 Albumin (3.4-5.0) g/dL 2.8 L Serum HCG, Qual Negative Urine Opiates Screen (Negative) Negative Urine Methadone Screen (Negative) Negative Ur Barbiturates Screen (Negative) Negative Ur Tricyclics Screen (Negative) Negative Ur Amphetamines Screen (Negative) Negative U Benzodiazepines Scrn (Negative) Negative Urine Cocaine Screen (Negative) Positive A Ur THC Screen (Negative) Positive A POC- Test(urine) Negative Medical Decision Making Troponin negative. WBC 15,000, neutrophils 13,000. BUN 25, creatinine 1.3, mag 1.7, CRP 20. Positive for cocaine and THC. Potassium 2.7. Lactate 3.3. Initial Assessment: 29-year-old female with history of hepatitis C, i.v. drug abuse, and depression presents with swelling and pain in her right arm after injecting prescribed Suboxone 5 days ago. Reports occasional crack cocaine use, last in August. Denies fever but has chills. Developed chest pain and shortness of breath while running. Daily tobacco use. No history of endocarditis or sharing needles. No calf pain or swelling. Pain in arm tolerable. Differential Diagnosis: - Right arm abscess: Significantly swollen and erythematous right arm with fluctuant abscess in AC region and lymphangitis to axillary region. Pain tolerable, no fever but experienced chills. History of injecting Suboxone prescribed 5 days ago. Wound culture pending. Dr. Montes reviewed case, no obvious abscess on CT scan. Requires admission for further evaluation and management. Dr. Jaimes aware. Drained approximately 1 cup of purulent material from AC region after instillation of 1% lidocaine with epi 5 cm?. Patient tolerated procedure well, reports improved arm range of motion. Dressing placed with ABD pad and 1/4 inch iodoform gauze. Initiated Vancomycin and Zosyn for se psis management. Pending CT scans. - Sepsis: Meets sepsis criteria: WBC 15,000, neutrophils 13,000, BUN 25, creatinine 1.3, mag 1.7, CRP 20, potassium 2.7, lactate 3.3. Conversing, alert, and oriented. Supplemented with 40 mEq oral potassium and 20 mEq IV potassium. Initiated Vancomycin and Zosyn for sepsis management. Approximately 45 minutes of critical care time spent on CT ordering and review, potassium supplementation, telemetry monitoring, and sepsis management. Blood pressure 117/55 at reassessment. - Chest pain and shortness of breath: Experienced chest pain and shortness of breath while running to find clinical operations consultant. Daily tobacco use, reports shortness of breath not unusual. Lungs clear to auscultation, EKG shows normal sinus rhythm without hypokalemia-related changes. Troponin negative. - Hypokalemia: Potassium 2.7. Supplemented with 40 mEq oral potassium and 20 mEq IV potassium. - Pain management: Worsening pain. Given 1 mg Dilaudid, tolerated well. Allergic to NSAIDs, so Toradol not given. Due to hepatitis history, acetaminophen not administered. ED Course: - Troponin negative. - White count of 15,000. - EKG shows normal sinus rhythm without hypokalemia-related changes. - BUN of 25, creatinine 1.3, mag of 1.7, CRP of 20. - Positive for cocaine and THC. - Potassium is 2.7, supplemented with 40 mEq of p.o. potassium and 20 mEq of i.v. potassium. - Lactate of 3.3, we'll recheck. - Wound culture pending. - Vanco and Zosyn initiated. - Procedure performed: After instillation of 1% lidocaine with epi 5 cm?, used an 11 blade scalpel and approximately 1 cup of purulent material was drained from the AC region. Patient tolerated procedure without incident and reports improved arm range of motion. Dressing placed with ABD pad and 1/4 inch iodoform gauze. - Pending CT scans. - Critical care time: Approximately 45 minutes of critical care time secondary to CT ordering and review, supplementing potassium i.v. and telemetry monitoring, sepsis requiring vancomycin and Zosyn i.v. with i.v. fluid resuscitation, meeting sepsis criteria. Blood pressure 117/55 at time of reassessment, conversing and alert and oriented throughout this encounter. - Long discussion regarding opioids. Given 1 mg of Dilaudid for worsening pain, tolerated well. Allergic to NSAIDs, so Toradol not given. Due to hepatitis history, acetaminophen not administered. - Case reviewed with Dr. Montes, no obvious abscess after reviewing CT scan. Requires admission. Dr. Jaimes aware. Final Assessment: Patient with right arm abscess and sepsis requiring admission. Managed with wound drainage, antibiotics, and potassium supplementation. Pending further evaluation with CT scans. Clinical Impression: - Right arm abscess - Sepsis - Chest pain and shortness of breath - Hypokalemia - Pain management Disposition: - Admission: Requires admission for further evaluation and management. Dr. Jaimes aware. Critical Care: Approximately 45 minutes of critical care time provided. MDM Components Evaluation: - Number of Differential Diagnoses or Management Options: Right arm abscess, sepsis, chest pain and shortness of breath, hypokalemia, pain management. - Amount and Complexity of Data Reviewed: Troponin, white count, EKG, BUN, creatinine, mag, CRP, potassium, lactate, wound culture, Vanco and Zosyn initiation, CT scans. - Risk of Complication and Morbidity or Mortality: High risk due to sepsis, abs cess, hypokalemia, and history of substance abuse. Quality:[facility] Health Related Social Needs: No Data to Display Critical Care Time Critical Care Time Attestation: 45 minutes of critical care time secondary to acute hypokalemia and sepsis requiring IV antibiotics potassium supplementation telemetry monitoring EKG interpretation review diagnostic imaging and lab interpretation and review and admission to the hospital PFSH All Active Problems (Updated 10/13/24 @ 23:12 by Didier Jaimes MD) IV drug user (Acute) Lactic acidosis (Acute) HEDY (acute kidney injury) (Acute) Abscess of right upper extremity (Acute) Cellulitis (Acute) Severe sepsis (Acute) Encounter for Nexplanon removal (Acute) Hepatitis C antibody test positive (Acute) 12/2020. No viral load detected Patient desires (Acute) Routine screening for STI (sexually transmitted infection) (Acute) Foreign body (Acute) Irregular menses (Acute) Wears glasses (Chronic) with other poor obstetric history (Acute) 2017 IUFD at 37 weeks. Preeclampsia treated with labetalol . Positive UDS at time of delivery. Depression (Chronic) many years. 02/2018 restarted Fluoxetine at time of 6w PP visit. 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 Quit. Tobacco abuse disorder (Acute) Medical History (Updated 10/13/24 @ 23:12 by Didier Jaimes MD) Twin Hx of pre-eclampsia in prior , currently 2016. Present at time of admission for IUFD. Treated with labetalol for several months . 2018. IOL at term for elevated BP. LMP 05/23/2018 Cutaneous abscess of buttock (12/12/16) General counselling and advice on contraception (03/27/18) Declines all BC after 01/2018. Given written info on NFP. Goiter (04/30/13) Abscess of buttock, right Asthma Mild, exercise induced. Several years since use of inhalant. Dysmenorrhea Menorrhagia CSA age 8 Surgical History (Updated 01/17/21 @ 16:22 by Tracy Ruano MD) Tooth extraction [place] teeth age 18. No complications with anesthesia. Cholecystectomy 2007, open Family History Mother Diabetes Essential hypertension Heart disease Diverticula of small intestine Asthma Father Cirrhosis Hypertension Grandmother Diabetes Heart disease Hypertension Asthma Maternal Aunt Heart disease x2 Hypertension Brother Hypertension Social History (Updated 01/17/21 @ 16:27 by Tracy Ruano MD) Smoking/Tobacco Use Status: Current every day Smoking risk assessment performed?: Yes Alcohol Intake: former Drug use: Occasionally Substance use type: heroin Details: 01/17/21. pt reports no use in 3mo. Both she and her brother Frank have quit together Household members: family, children and other Details: Mother and Daughter Jessica &Twins not in her custody (per DCF order) Number of Children: 3 Communication Needs: None and [employer] current occupation: Not working. Do you feel safe at home: Yes Do you feel safe in your relationship?: Yes Additional Social history: 12/2020. she and her brother Frank have moved to [facility] to live with youngest brother Arcadio. she and Frank have quit heroin x2mo. Arcadio does not use heroin. Pt's BF Alfie is being released from assisted in 01/2021. Female Reproductive History Menstrual control method: none History History 3 Para 3 Hx # Term Pregnancies 2 Multiple births 1 Hx # Pregnancies 1 Ectopic pregnancies 0 AB induced 0 Hx Number of Living Children 3 AB spontaneous 0 Past Pregnancies Del. Date GA/Weeks # Preg Succ Route Wgt Sex Labor Lgth Anesth esia Location [facility] 12/01/16 37 No vaginal 1814.369 g Female NVR Teresa -Gina 02/12/18 39 No vaginal 3373.593 g Female [address] [facility] [place] - Dr. Tellez 01/14/19 30 Yes vaginal 1757.67 g Female Tracy Ruano 01/14/19 30 Yes vaginal 1926.768 g Female Renetta Ruano Delivery Date: 12/01/16 Last Updated by: Tracy Ruano M.D. IUFD diagnosed at presentation. ? name Shavonne. Spontaneous labor delivered vaginally. Diagnosed with preeclampsia and treated with labetalol for several months . Positive UDS at the time of presentation in labor. Delivery Date: 02/12/18 Last Updated by: Tracy Ruano M.D. Infant name: Jessica IOL for gestational HTN Delivery Date: 01/14/19 Last Updated by: Tracy Ruano M.D. [place]. Trans[place] [facility] [place] delivery 2/2 prematurity. remained x2mo Delivery Date: 01/14/19 Last Updated by: Claribel Chaneyla. transfered to NICU at [facility] . Discharged after 2mo.
--- NOTE | 2024-10-13 23:58 | DI.VRAD_ITS ---
Addendum created by Bruce Newton MD on 10/13/2024 11:59:15 PM EDT: Addendum: Please note that the report was inadvertently approved prior to completion. Please disregard the 1st section of findings which should read: Pulmonary arteries: No evidence for pulmonary embolism. Initial report created on 10/13/2024 11:58:03 PM EDT: PROCEDURE INFORMATION: Exam: CTA Chest With Contrast Exam date and time: 10/13/2024 8:41 PM Age: 29 years old Clinical indication: Other: Chest pain, ivda, swollen right arm; Additional info: 75ml omnipaque 350 total given to PT. TECHNIQUE: Imaging protocol: Computed tomographic angiography of the chest with contrast. Exam focused on the arteries. 3D rendering (Not supervised by radiologist): MIP and/or 3D reconstructed images were created by the technologist. Contrast material: OMNIPAQUE 350; Contrast volume: 75 ml; Contrast route: INTRAVENOUS (IV); COMPARISON: CT UPPER EXTREMITY RT W 10/13/2024 8:41 PM FINDINGS: Pulmonary arteries: Click negative PE Aorta: Unremarkable. No aortic aneurysm. No aortic dissection. Lungs: Unremarkable. No consolidation. No masses. Pleural spaces: Unremarkable. No pneumothorax. No pleural effusion. Heart: Unremarkable. No cardiomegaly. No pericardial effusion. Coronary arteries: No perceptible coronary artery calcifications. Lymph nodes: Unremarkable. No enlarged lymph nodes. Gallbladder and biliary ducts: Prior cholecystectomy noted. Bones/joints: Osseous structures are grossly intact. No suspicious lytic or sclerotic osseous lesion. Soft tissues: Unremarkable. IMPRESSION: No CT evidence for acute cardiopulmonary disease. Dictated and Authenticated by: Bruce Newton MD. Orderin Wilmer Mahajan MD
[2024-10-14] VITALS (21 sets, daily range): BP systolic 89–107; BP diastolic 50–72; PULSE 76–95; RESP 13–22; TEMP 36.5–37.1; O2SAT 95–99
[2024-10-14 00:03] LABS: Lactate 1.6 mmol/L (<or=2.0)
--- NOTE | 2024-10-14 00:03 | DI.VRAD_ITS ---
Addendum created by Bruce Newton MD on 10/14/2024 12:04:11 AM EDT: COMMENT: The exam findings were verbally communicated by me to Dr. Rios via telephone conference at 12:03 AM EDT on 10/14/2024. The findings were acknowledged and understood. Initial report created on 10/14/2024 12:02:25 AM EDT: PROCEDURE INFORMATION: Exam: CT Right Upper Extremity With Contrast Exam date and time: 10/13/2024 8:41 PM Age: 29 years old Clinical indication: Swelling and other: Cellulitis right arm, entire arm indurationed; Upper limb; Additional info: 75ml omnipaque 350 total given to PT. TECHNIQUE: Imaging protocol: Computed tomography of the right upper extremity with contrast. Contrast material: OMNIPAQUE 350; Contrast volume: 75 ml; Contrast route: INTRAVENOUS (IV); COMPARISON: CT CHEST PE CTA 10/13/2024 8:41 PM FINDINGS: Bones/joints: No osseous erosive abnormality to suggest osteomyelitis. There is no fracture. Soft tissues: Diffuse induration of the soft tissue planes with the diffuse soft tissue edema characteristic for cellulitis. In the ventral soft tissues of the proximal right upper extremity, a 2.4 x 1.6 cm nodule is identified, and this may represent a small abscess. Vasculature: Right axillary deep venous thrombosis suspected. IMPRESSION: 1. Right axillary deep venous thrombosis suspected. Recommend correlation with venous ultrasound. 2. Diffuse induration of the soft tissue planes with the diffuse soft tissue edema characteristic for cellulitis. 3. In the ventral soft tissues of the proximal right upper extremity, a 2.4 x 1.6 cm nodule is identified, and this may represent a small abscess. Dictated and Authenticated by: Bruce Newton MD. Orderin Wilmer Mahajan MD
--- NOTE | 2024-10-14 00:04 | W.ED.FU ---
Date of service: 10/14/24 Time of Service: 00:09 Follow Up Plan: Dr. Jaimes notified of critical CT UE findings which were called to ED by LUIS ALFREDO
[2024-10-14 00:25] LABS: Troponin I < 4 ng/L (<or=51)
[2024-10-14] MEDS: Apixaban 5 MG TAB 10 MG PO ×3 (01:20→20:24)
--- NOTE | 2024-10-14 01:33 | W.PC.ACHO ---
Registration Status: Primary Language: Preferred Language: ED Information & Data Chief Complaint GenMedical 10/13/24 23:13 Triage Note PT states that she injected 10/13/24 19:46 suboxone in her R AC 5 days ago. PT noticed signs of infection 3 days ago. PT now has redness and swelling of her R upper and lower arm Medical / Surgical History (Last Updated 01/25/21 @ 18:04 by Tracy Em MD) Twin Hx of pre-eclampsia in prior , currently Cutaneous abscess of buttock (12/12/16) General counselling and advice on contraception (03/27/18) Goiter (04/30/13) Abscess of buttock, right Asthma Dysmenorrhea Menorrhagia CSA age 8 (Last Updated 01/17/21 @ 16:22 by Tracy Em MD) Tooth extraction Cholecystectomy Most Recent Vital Signs Temperature 36.9 C 10/14/24 01:03 Temperature Source Oral 10/13/24 19:53 Pulse 91 H 10/14/24 01:03 Pulse Rhythm Regular 10/14/24 01:03 Pulse 93 H 10/14/24 00:33 Respiratory Rate 18 10/14/24 01:03 Respiratory Effort Normal 10/14/24 01:03 Respiratory Depth Normal 10/14/24 01:03 Respiratory Pattern Normal 10/14/24 01:03 Blood Pressure 99/63 L 10/14/24 01:03 Blood Pressure Mean 65 10/14/24 00:33 Blood Pressure Position Sitting 10/13/24 19:46 Pulse Oximetry 97 10/14/24 01:03 Oxygen Delivery Method Room Air 10/14/24 01:03 Oxygen Flow Rate 0 10/14/24 01:03 Pain Level 10 10/14/24 01:03 Allergies acetaminophen Adverse Reaction (Intermediate, Verified 10/13/24 19:56) Nausea ibuprofen Adverse Reaction (Intermediate, Verified 10/13/24 19:56) Intestinal Cramping NSAIDS (Non-Steroidal Anti-Inflamma Adverse Reaction (Intermediate, Verified 10/13/24 19:56) Nausea vicryl stitches Adverse Reaction (Intermediate, Uncoded 10/13/24 19:56) infection in skin Active Medications Generic Name Dose Route Start Last Admin Trade Name Freq PRN Reason Stop Dose Admin Apixaban 10 mg 10/14/24 00:10 10/14/24 01:20 Apixaban 5 Mg Tab PO 10 mg BID KAYLEN Administration Iohexol 100 ml 10/13/24 21:00 10/13/24 20:48 Omnipaque 350 Mg/Ml 100 Ml Btl IJ 11/12/24 23:59 75 ml DIRECTED KAYLEN Administration Sodium Chloride 50 ml 10/13/24 21:00 10/13/24 20:49 Normal Saline - Diluent 50 Ml Vial IJ 50 ml .FOR DI USE KAYLEN Administration Sodium Chloride 0 ml 10/13/24 20:49 10/13/24 20:49 Normal Saline Flush 10 Ml Syr IVP 10 ml PRN PRN Administration IV IV Catheter Type [Left Upper Saline Lock arm] IV Catheter Type [Left Saline Lock Antecubital] IV Catheter Gauge [Left Upper 20 arm] IV Catheter Gauge [Left 20 Antecubital] Diet Orders Category Date Time Status Nothing Per Oral [DIET] Nutrition 10/14/24 Breakfast Active Diagnostics 10/14/24 10/13/24 10/13/24 Range/Units 05:35 23:58 22:35 WBC Pending (4.4-10.8) 10^3/uL RBC Pending (3.93-5.22) 10^6/uL Hgb Pending (11.2-15.7) g/dL Hct Pending (36.0-46.0) % MCV Pending (80-95) fL MCH Pending (27.0-33.0) pg MCHC Pending (32.0-36.0) % RDW Pending (11.7-14.6) % Plt Count Pending (130-400) 10^3/uL MPV Pending (8.0-11.0) fL Immature Gran % % Neutrophils % % Lymphocytes % % Monocytes % % Eosinophils % % Basophils % % Nucleated RBC % (0.0-0.3) % Absolute Neutrophils (1.2-6.7) 10^3/uL Absolute Lymphocytes (1.2-3.4) 10^3/uL Absolute Monocytes (0.1-0.8) 10^3/uL Absolute Eosinophils (0.0-0.7) 10^3/uL Absolute Basophils (0.0-0.2) 10^3/uL RBC Morphology Hypochromasia Microcytosis ESR (0-20) mm/hr VBG Lactate 1.6 (<or=2.0) mmol/L Sodium Pending (136-145) mmol/L Potassium Pending (3.5-5.1) mmol/L Chloride Pending (98-107) mmol/L Carbon Dioxide Pending (21.0-32.0) mmol/L Anion Gap Pending (3-11) mmol/L BUN Pending (7-18) mg/dL Creatinine Pending (0.55-1.02) mg/dL Est GFR (CKD-EPI 2020) Pending (mL/min/1.73m2) Glucose Pending (74-106) mg/dL Calcium Pending (8.5-10.1) mg/dL Magnesium Pending (1.8-2.4) mg/dL Total Bilirubin (0.2-1.0) mg/dL AST (15-37) U/L ALT (14-59) U/L Alkaline Phosphatase (46-116) U/L Troponin I < 4 7 (<or=51) ng/L C-Reactive Protein (<or=0.5) mg/dL Total Protein (6.4-8.2) g/dL Albumin (3.4-5.0) g/dL Serum HCG, Qual Random Vancomycin Pending Urine Opiates Screen (Negative) Urine Methadone Screen (Negative) Ur Barbiturates Screen (Negative) Ur Tricyclics Screen (Negative) Ur Amphetamines Screen (Negative) U Benzodiazepines Scrn (Negative) Urine Cocaine Screen (Negative) Ur THC Screen (Negative) 10/13/24 10/13/24 10/13/24 Range/Units 21:21 20:19 20:10 WBC 15.73 H (4.4-10.8) 10^3/uL RBC 4.62 (3.93-5.22) 10^6/uL Hgb 11.5 (11.2-15.7) g/dL Hct 34.2 L (36.0-46.0) % MCV 74 L (80-95) fL MCH 24.9 L (27.0-33.0) pg MCHC 33.6 (32.0-36.0) % RDW 13.6 (11.7-14.6) % Plt Count 235 (130-400) 10^3/uL MPV 10.4 (8.0-11.0) fL Immature Gran % 0.0 % Neutrophils % 83.0 % Lymphocytes % 8.0 % Monocytes % 9.0 % Eosinophils % 0.0 % Basophils % 0.0 % Nucleated RBC % 0.0 (0.0-0.3) % Absolute Neutrophils 13.06 H (1.2-6.7) 10^3/uL Absolute Lymphocytes 1.26 (1.2-3.4) 10^3/uL Absolute Monocytes 1.42 H (0.1-0.8) 10^3/uL Absolute Eosinophils 0.00 (0.0-0.7) 10^3/uL Absolute Basophils 0.00 (0.0-0.2) 10^3/uL RBC Morphology See Below Hypochromasia 2+ Microcytosis 3+ ESR 61 H (0-20) mm/hr VBG Lactate 3.3 H* (<or=2.0) mmol/L Sodium 130 L (136-145) mmol/L Potassium 2.7 L* (3.5-5.1) mmol/L Chloride 92 L (98-107) mmol/L Carbon Dioxide 27.2 (21.0-32.0) mmol/L Anion Gap 10.8 (3-11) mmol/L BUN 25 H (7-18) mg/dL Creatinine 1.3 H (0.55-1.02) mg/dL Est GFR (CKD-EPI 2020) 57.09 (mL/min/1.73m2) Glucose 97 (74-106) mg/dL Calcium 8.6 (8.5-10.1) mg/dL Magnesium 1.7 L (1.8-2.4) mg/dL Total Bilirubin 0.6 (0.2-1.0) mg/dL AST 30 (15-37) U/L ALT 20 (14-59) U/L Alkaline Phosphatase 104 (46-116) U/L Troponin I 7 (<or=51) ng/L C-Reactive Protein 20.26 H (<or=0.5) mg/dL Total Protein 7.5 (6.4-8.2) g/dL Albumin 2.8 L (3.4-5.0) g/dL Serum HCG, Qual Negative Random Vancomycin Urine Opiates Screen Negative (Negative) Urine Methadone Screen Negative (Negative) Ur Barbiturates Screen Negative (Negative) Ur Tricyclics Screen Negative (Negative) Ur Amphetamines Screen Negative (Negative) U Benzodiazepines Scrn Negative (Negative) Urine Cocaine Screen Positive A (Negative) Ur THC Screen Positive A (Negative) 10/13/24 21:20 Blood Culture - Pending Blood 10/13/24 20:10 Blood Culture - Pending Blood [id number] Documentation POC Urine Test Start: 10/13/24 20:19 Freq: .Urine Test Status: Active Protocol: Activity Type Activity Date Activity User E-sign Co-sign Detail Recorded Client Recorded Date Recorded By Document 10/13/24 21:25 CB [id number] 10/13/24 21:25 CB Intake and Output - 24 Hour Total 10/13/24 19:41 thru 10/14/24 01:03 Intake Total 1650 Balance 1650 Weight 89.8 kg Intake: IV 1650 Falls Risk Assessment History of Falls No History 10/14/24 01:03 Contributing Factors No Factors 10/14/24 01:03 Ambulatory Aids Independent 10/14/24 01:03 Tubes/Lines None 10/14/24 01:03 Gait Evaluation No gait disturbance 10/14/24 01:03 Cognition No cognitive impairment 10/14/24 01:03 Fall Total Score 0 10/14/24 01:03 Level of Risk Standard/Low Risk 10/14/24 01:03 Problems (Last Updated 01/25/21 @ 18:04 by Tracy Em MD) IV drug user (Acute) Lactic acidosis (Acute) HEDY (acute kidney injury) (Acute) Abscess of right upper extremity (Acute) Cellulitis (Acute) Severe sepsis (Acute) Notes 10/13/24 23:00 Nursing Notes by Lenny Espinoza PT provided with foodNursing Note: Initialized on 10/13/24 23:00 - END OF NOTE 10/13/24 21:54 Nursing Notes by Lenny Espinoza PT returned from [place] Nursing Note: Initialized on 10/13/24 21:54 - END OF NOTE 10/13/24 21:44 Nursing Notes by Lenny Espinoza 2130 PT to CTNursing Note: Initialized on 10/13/24 21:44 - END OF NOTE 10/13/24 20:49 Nursing Notes by Lenny Espinoza PT is unable to urinate for sample. Nursing Note: Initialized on 10/13/24 20:49 - END OF NOTE 10/13/24 20:39 Nursing Notes by Lenny Espinoza this RN attempted to get second set of BC. 2nd RN will attempt prior to starting ABX Nursing Note: Initialized on 10/13/24 20:39 - END OF NOTE v v v v v v v v v Sending and/or Receiving Nurses: Please use comment section below to note any information pertinent to the patient hand-off not included above. Information / Comments: Report received from: Damian. Patient was brought in by ambulance after injecting suboxone into right AC . Saturday, developed s/s of infection. Abscess to Right arm, lanced in ER. A&O x 4. Independent. All questions asked, answered. Patient transferred to room 215.
[2024-10-14] MEDS: HYDROmorphone 2 MG/ML SYR 1 MG IVP ×4 (03:16→20:24)
[2024-10-14] MEDS: Normal Saline Flush 10 ML SYR (03:25)
[2024-10-14 06:52] LABS: HCT 28.8 % (36.0-46.0); HGB 9.8 g/dL (11.2-15.7); MCH 25.3 pg (27.0-33.0); MPV 10.6 fL (8.0-11.0); Platelet Count 214 10^3/uL (130-400); RBC 3.88 10^6/uL (3.93-5.22); RDW 13.7 % (11.7-14.6); RDW-SD 36.9 fL; WBC 14.34 10^3/uL (4.4-10.8)
[2024-10-14 07:12] LABS: Anion Gap 7.7 mmol/L (3-11); BUN 18 mg/dL (7-18); CO2 27.3 mmol/L (21.0-32.0); CREATININE 0.9 mg/dL (0.55-1.02); Calcium 8.3 mg/dL (8.5-10.1); Chloride 99 mmol/L (98-107); Estimated GFR 88.75 (mL/min/1.73m2); Glucose 100 mg/dL (74-106); Magnesium 1.9 mg/dL (1.8-2.4); Potassium 3.4 mmol/L (3.5-5.1); Sodium 134 mmol/L (136-145)
[2024-10-14 07:16] LABS: MCV 74 fL (80-95)
[2024-10-14 07:30] LABS: Vancomycin, Random 14.2 ug/mL
[2024-10-14] MEDS: CEFEPIME 2 GM in Normal Saline 100 ML IVPB ×2 (07:42→15:38)
[2024-10-14] MEDS: Normal Saline Flush 10 ML SYR IVP ×3 (07:43→22:07)
[2024-10-14] MEDS: VANCOMYCIN 1,250 MG in Normal Saline 250 ML 166.667 MG IVPB (08:39)
--- NOTE | 2024-10-14 11:45 | W.PM.PROGNOT ---
Date of Service Date of service: 10/14/24 Time of Service: 11:45 Assessment and Plan Assessment and plan (1) Severe sepsis: Status: Acute Assessment and plan: -patient met criteria for severe sepsis on admission with HR ~110bpm, WBC 15, source of infection being RUE cellulitis and abscess, HEDY with Cr 1.3 (baseline ~0.6) and lactic acid of 3.3 -CT of RUE showed -patient started on vanc and zosyn in ED, will switch to vanc and cefepime given HEDY and risk of worsening kidney function with vanc/zosyn combo -Zosyn d/c and now on cefepime -Blood Cx # 1 w GPC -Repeat Blood Cx pending -Continue to f/u blood cultures -Repeat lactic acid normal at 1.3 -Surgery consult ognouzair and seen by Dr. Hinojosa - no OR at this time - wound dressing regimen ordered- please read notes -abscess drained in ED, follow-up wound culture results repeated order was still pending -Decreased ROM to R elbow joint - orthopedic consult and discussion with Dr. De La Torre: at this time d/t angle in mobility and imaging- expected finding as per CT findings- will call if ROM restricted to 5-10 degrees as short arc motin would be expected in the setting of septic joint. (2) Cellulitis: Status: Acute Assessment and plan: Source of sever sepsis on presentation -And as above (3) Abscess of right upper extremity: Status: Acute Assessment and plan: -As above (4) HEDY (acute kidney injury): Status: Acute Assessment and plan: -Decreased organ perfusion VS end organ damage in the setting of severe sepsis and secondary to infection Improving Cr BMP in AM (5) Lactic acidosis: Status: Acute Assessment and plan: -In the setting of severe sepsis as noted above -now 1.3 - no further trending (6) Deep vein thrombosis (DVT) of axillary vein of right upper extremity: Status: Acute Assessment and plan: -Dx as per CT of right upper extremity - Continue Eliquis 10 mg BID X 7 days then transition to 5 mg BID maintenance (7) IV drug user: Status: Acute Assessment and plan: -likely reason or infection as patient stated she injected IV drugs into her right AC - Not on suboxone since out of incarceration - will try to go back to her outpatient program- not interested in naltrexone - Also mentioned using xylazine at the healing ulcer site to her left forearm Discussed with Dr. melton Subjective Subjective Patient reports: feels better, still having pain, tolerating liquids well, tolerating a regular diet, voiding w/o difficulty and afebrile; denies diarrhea, nausea, vomiting or shortness of breath Exam Narrative Exam Narrative: Constitutional The patient without acute distress HENMT: Facial structures with normal appearance Eyes: Well aligned, intact ROM Neck: Normal ROM, no meningeal signs Neuro:alert and oriented X4 , non focal Chest:Chest is symmetrical and normal appearance Resp: Unlabored breathing, clear lung bilaterally Cardio: regular rhythm, S1, S2, no murmur, capillary refill<3 sec to RUE, positive right radial/ulnar pulses GI: Abdomen is not distended, soft and non tender, bowel sounds are present : Negative Costovertebral angle tenderness Back/spine/Pelvis: No back tenderness, normal alignment Integumentary: RUE limited redness mid arm and mid- forearm, improved swelling, opened wound at I&D site w purulent exudate Extremities: RUE limited flexion 20 degrees / limited ext 50 degrees w/o tremendous pain during mobilization Psych: RASS 0, congruent mood and normal affect. Objective Last Vital Signs Temp 36.5 C 10/14/24 11:28 Pulse 76 10/14/24 11:28 Resp 18 10/14/24 11:28 BP 92/51 L 10/14/24 11:28 Pulse Ox 96 10/14/24 11:28 Laboratory Results - last 24 hr 10/13/24 10/13/24 10/13/24 20:10 20:19 21:21 WBC 15.73 H RBC 4.62 Hgb 11.5 Hct 34.2 L MCV 74 L MCH 24.9 L MCHC 33.6 RDW 13.6 Plt Count 235 MPV 10.4 Immature Gran % 0.0 Neutrophils % 83.0 Lymphocytes % 8.0 Monocytes % 9.0 Eosinophils % 0.0 Basophils % 0.0 Nucleated RBC % 0.0 Absolute Neutrophils 13.06 H Absolute Lymphocytes 1.26 Absolute Monocytes 1.42 H Absolute Eosinophils 0.00 Absolute Basophils 0.00 RBC Morphology See Below Hypochromasia 2+ Microcytosis 3+ ESR 61 H VBG Lactate 3.3 H* Sodium 130 L Potassium 2.7 L* Chloride 92 L Carbon Dioxide 27.2 Anion Gap 10.8 BUN 25 H Creatinine 1.3 H Est GFR (CKD-EPI 2020) 57.09 Glucose 97 Calcium 8.6 Magnesium 1.7 L Total Bilirubin 0.6 AST 30 ALT 20 Alkaline Phosphatase 104 Troponin I 7 C-Reactive Protein 20.26 H Total Protein 7.5 Albumin 2.8 L Serum HCG, Qual Negative Random Vancomycin Urine Opiates Screen Negative Urine Methadone Screen Negative Ur Barbiturates Screen Negative Ur Tricyclics Screen Negative Ur Amphetamines Screen Negative U Benzodiazepines Scrn Negative Urine Cocaine Screen Positive A Ur THC Screen Positive A 10/13/24 10/13/24 10/14/24 22:35 23:58 06:35 WBC 14.34 H RBC 3.88 L Hgb 9.8 L Hct 28.8 L MCV 74 L MCH 25.3 L MCHC 34.0 RDW 13.7 Plt Count 214 MPV 10.6 Immature Gran % Neutrophils % Lymphocytes % Monocytes % Eosinophils % Basophils % Nucleated RBC % Absolute Neutrophils Absolute Lymphocytes Absolute Monocytes Absolute Eosinophils Absolute Basophils RBC Morphology Hypochromasia Microcytosis ESR VBG Lactate 1.6 Sodium 134 L Potassium 3.4 L Chloride 99 Carbon Dioxide 27.3 Anion Gap 7.7 BUN 18 Creatinine 0.9 Est GFR (CKD-EPI 2020) 88.75 Glucose 100 Calcium 8.3 L Magnesium 1.9 Total Bilirubin AST ALT Alkaline Phosphatase Troponin I 7 < 4 C-Reactive Protein Total Protein Albumin Serum HCG, Qual Random Vancomycin 14.2 Urine Opiates Screen Urine Methadone Screen Ur Barbiturates Screen Ur Tricyclics Screen Ur Amphetamines Screen U Benzodiazepines Scrn Urine Cocaine Screen Ur THC Screen Time Spent with Patient Time Spent with Patient: >50 minutes Time was spent: preparing to see the patient(eg.review tests), obtaining and/or reviewing separately otained hiistory, ordering medications,tests, procedures, referring, communicating with other health lawn care specialist, indepentently interpreting results, counseling the patient and care coordination
[2024-10-14] MEDS: POTASSIUM CHLORIDE/0.9% NACL 1,000 ML 100 MEQ IV (12:09)
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
--- NOTE | 2024-10-14 15:57 | OCONE_ITS ---
Assessment and Plan Assessment and plan (1) Deep vein thrombosis (DVT) of axillary vein of right upper extremity: Status: Acute (2) Cellulitis: Status: Acute (3) Abscess of right upper extremity: Status: Acute Assessment and plan: 29-year-old female with right arm cellulitis, small abscesses, and both deep and superficial venous thromboses of the right upper extremity due to IVDA Consult placed for limited elbow range of motion. CT scan does not show any fluid or concerning findings in or about the elbow. CT certainly does not show any septic elbow joint. Abscesses and cellulitis are clearly separate from the elbow joint. Reviewed with hospitalist ULTRASOUND TECH?patient has over 50 degrees of motion before there is discomfort, which has not really concerning for septic arthritis. Difficulty with elbow range of motion is would be completely expected given the other problems throughout the right upper extremity. Recommend medical management of cellulitis and DVT. General surgery consulted for abscesses. PT/OT gentle elbow, wrist, hand, and shoulder range of motion to prevent stiffness. Call me if any concerning findings develop for reevaluation. PFSH All Active Problems (Updated 10/14/24 @ 06:50 by Didier Jaimes MD) Deep vein thrombosis (DVT) of axillary vein of right upper extremity (Acute) IV drug user (Acute) Lactic acidosis (Acute) HEDY (acute kidney injury) (Acute) Abscess of right upper extremity (Acute) Cellulitis (Acute) Severe sepsis (Acute) Encounter for Nexplanon removal (Acute) Hepatitis C antibody test positive (Acute) 12/2020. No viral load detected Patient desires (Acute) Routine screening for STI (sexually transmitted infection) (Acute) Foreign body (Acute) Irregular menses (Acute) Wears glasses (Chronic) with other poor obstetric history (Acute) 2017 IUFD at 37 weeks. Preeclampsia treated with labetalol . Positive UDS at time of delivery. Depression (Chronic) many years. 02/2018 restarted Fluoxetine at time of 6w PP visit. 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 Quit. Tobacco abuse disorder (Acute) Medical History (Updated 10/14/24 @ 06:50 by Didier Jaimes MD) Twin Hx of pre-eclampsia in prior , currently 2017. Present at time of admission for IUFD. Treated with labetalol for several months . 2018. IOL at term for elevated BP. LMP 05/23/2018 Cutaneous abscess of buttock (12/12/16) General counselling and advice on contraception (03/27/18) Declines all BC after 01/2018. Given written info on NFP. Goiter (04/30/13) Abscess of buttock, right Asthma Mild, exercise induced. Several years since use of inhalant. Dysmenorrhea Menorrhagia CSA age 8 Surgical History (Updated 01/17/21 @ 16:22 by Tracy Ruano MD) Tooth extraction [place] teeth age 18. No complications with anesthesia. Cholecystectomy 2007, open Family History Mother Diabetes Essential hypertension Heart disease Diverticula of small intestine Asthma Father Cirrhosis Hypertension Grandmother Diabetes Heart disease Hypertension Asthma Maternal Aunt Heart disease x2 Hypertension Brother Hypertension Social History (Updated 01/17/21 @ 16:27 by Tracy Ruano MD) Smoking/Tobacco Use Status: Current every day Smoking risk assessment performed?: Yes Alcohol Intake: former Drug use: Occasionally Substance use type: heroin Details: 01/17/21. pt reports no use in 3mo. Both she and her brother Frank have quit together Household members: family, children and other Details: Mother and Daughter Jessica &Twins not in her custody (per DCF order) Housing: homeless Number of Children: 3 Communication Needs: None and Corrective Lenses current occupation: Not working. Do you feel safe at home: Yes Do you feel safe in your relationship?: Yes Additional Social history: 12/2020. she and her brother Frank have moved to [facility] to live with youngest brother Arcadio. she and Frank have quit heroin x2mo. Arcadio does not use heroin. Pt's BF Alfie is being released from correction in 01/2021. Female Reproductive History Menstrual control method: none History History 2 3 Para 3 Hx # Term Pregnancies 2 Multiple births 1 Hx # Pregnancies 1 Ectopic pregnancies 0 AB induced 0 Hx Number of Living Children 3 AB spontaneous 0 Past Pregnancies Del. Date GA/Weeks # Preg Succ Route Wgt Sex Labor Lgth Anesth esia Location Prov Complic 12/01/16 37 No vaginal 4 lb Female [facility] 02/12/18 39 No vaginal 7 lb 7 oz Female 8 hrs regional N [facility] Dr. Tellez 01/14/19 30 Yes vaginal 3 lb 14 oz Female Renetta Weinstein 01/14/19 30 Yes vaginal 4 lb 4 oz Female Tracy Ruano Delivery Date: 12/01/16 Last Updated by: Tracy Ruano M.D. IUFD diagnosed at presentation. ? name Shavonne. Spontaneous labor delivered vaginally. Diagnosed with preeclampsia and treated with labetalol for several months . Positive UDS at the time of presentation in labor. Delivery Date: 02/12/18 Last Updated by: Tracy Ruano M.D. name: eJssica IOL for gestational HTN Delivery Date: 01/14/19 Last Updated by: Tracy Ruano M.D. Faviola. Transfered [place] [facility] after delivery 2/ prematurity. remained x2mo Delivery Date: 01/14/19 Last Updated by: Tracy Ruano M.D. Anusha. transfered to N[place] [facility] . Discharged after 2mo. Results Last Vital Signs Temp 97.7 F 10/14/24 11:28 Pulse 76 10/14/24 11:28 Resp 18 10/14/24 11:28 BP 92/51 L 10/14/24 11:28 Pulse Ox 96 10/14/24 11:28 Labs 10/14/24 06:35 10/14/24 06:35 Labs: Laboratory Results - last 24 hr 10/13/24 10/13/24 10/13/24 20:10 20:19 21:21 WBC 15.73 H RBC 4.62 Hgb 11.5 Hct 34.2 L MCV 74 L MCH 24.9 L MCHC 33.6 RDW 13.6 Plt Count 235 MPV 10.4 Immature Gran % 0.0 Neutrophils % 83.0 Lymphocytes % 8.0 Monocytes % 9.0 Eosinophils % 0.0 Basophils % 0.0 Nucleated RBC % 0.0 Absolute Neutrophils 13.06 H Absolute Lymphocytes 1.26 Absolute Monocytes 1.42 H Absolute Eosinophils 0.00 Absolute Basophils 0.00 RBC Morphology See Below Hypochromasia 2+ Microcytosis 3+ ESR 61 H VBG Lactate 3.3 H* Sodium 130 L Potassium 2.7 L* Chloride 92 L Carbon Dioxide 27.2 Anion Gap 10.8 BUN 25 H Creatinine 1.3 H Est GFR (CKD-EPI 2020) 57.09 Glucose 97 Calcium 8.6 Magnesium 1.7 L Total Bilirubin 0.6 AST 30 ALT 20 Alkaline Phosphatase 104 Troponin I 7 C-Reactive Protein 20.26 H Total Protein 7.5 Albumin 2.8 L Serum HCG, Qual Negative Random Vancomycin Urine Opiates Screen Negative Urine Methadone Screen Negative Ur Barbiturates Screen Negative Ur Tricyclics Screen Negative Ur Amphetamines Screen Negative U Benzodiazepines Scrn Negative Urine Cocaine Screen Positive A Ur THC Screen Positive A 10/13/24 10/13/24 10/14/24 22:35 23:58 06:35 WBC 14.34 H RBC 3.88 L Hgb 9.8 L Hct 28.8 L MCV 74 L MCH 25.3 L MCHC 34.0 RDW 13.7 Plt Count 214 MPV 10.6 Immature Gran % Neutrophils % Lymphocytes % Monocytes % Eosinophils % Basophils % Nucleated RBC % Absolute Neutrophils Absolute Lymphocytes Absolute Monocytes Absolute Eosinophils Absolute Basophils RBC Morphology Hypochromasia Microcytosis ESR VBG Lactate 1.6 Sodium 134 L Potassium 3.4 L Chloride 99 Carbon Dioxide 27.3 Anion Gap 7.7 BUN 18 Creatinine 0.9 Est GFR (CKD-EPI 2020) 88.75 Glucose 100 Calcium 8.3 L Magnesium 1.9 Total Bilirubin AST ALT Alkaline Phosphatase Troponin I 7 < 4 C-Reactive Protein Total Protein Albumin Serum HCG, Qual Random Vancomycin 14.2 Urine Opiates Screen Urine Methadone Screen Ur Barbiturates Screen Ur Tricyclics Screen Ur Amphetamines Screen U Benzodiazepines Scrn Urine Cocaine Screen Ur THC Screen
--- NOTE | 2024-10-14 20:06 | SCONE_ITS ---
Date of service: 10/14/24 Time of Service: 07:20 Assessment and Plan Assessment and plan (1) Abscess of right upper extremity: Status: Acute Assessment and plan: The cellulitis should start to improve now the antibiotics have been initiated and the abscess has been drained. Obviously, the septic thrombophlebitis remains an issue here. Is far too extensive for debridement of the venous system, and there are not any specific tender or inflamed cords that would represent good clinical targets anyway. Hopefully, the therapeutic anticoagulation combined with the antibiotic should help treat this. It seems like the arm is a little bit better today compared to yesterday. I did apply more Adolfo bandages today since the hand at fingers were quite swollen with inadequate drainage distal to the Adolfo wrap site. I wrapped the extremity from the fingers up to the humerus. History of Present Illness History of Present Illness Chief Complaint: Right upper extremity cellulitis Narrative: Sugar is 29 yers old. She is right hand dominant. She came to the emergency department on 10/13 complaining of arm pain and swelling. She had some exhertioanl dyspnea around that time as well. She though her arm was infected from injecting suboxone approximtely 5 days debofe that. She denies subjetive fevers, but she did have muscle aches. In the ED, she had a WBC around 15,000 and acute kidney injury with mild lactic acidosis. Her right arm was swollen from the hand through the antecubital fossa. She undwent CT scan of the arm and chest. CT was interprested as small abscesses near the antecubital fossa adjacent to the biceps and extensive cellulitis. She was also found to have a thrombosis of the axillary, basilic, brachial and cephalic veins. She underwent I&D of the AC fossa absces, and blood cultures. As best I can tell, cultures of the abscess were not obtained. She was started on broad spectrum antibiotics and admitted. She was started on therapeutic anticoagulation. I was consulted t see her on the following day. Review of Systems Constitutional Constitutional: Reports body ache(s), Denies difficulty sleeping, Reports fatigue, Denies fever(s) and Denies poor appetite Eyes Eyes: Reports system reviewed and no additional complaints, except as documented ENT Ears, Nose, Mouth, and Throat: Reports system reviewed and no additional complaints, except as documented Cardiovascular Cardiovascular: Denies chest pain and Reports dyspnea on exertion Respiratory Respiratory: Denies cough and Reports dyspnea on exertion Gastrointestinal Gastrointestinal: Reports system reviewed and no additional complaints, except as documented Musculoskeletal Musculoskeletal: Denies back pain, Reports myalgias, Reports arthralgias (right elbow), Reports joint swelling and Reports stiffness (right arm) Neurologic Neurologic: Reports system reviewed and no additional complaints, except as documented Psychiatric Psychiatric: Reports system reviewed and no additional complaints, except as documented Endocrine Endocrine: Reports fatigue Hematologic/Lymphatic Hematologic/Lymphatic: Denies easy bleeding and Denies easy bruising PFSH All Active Problems Deep vein thrombosis (DVT) of axillary vein of right upper extremity (Acute) IV drug user (Acute) Lactic acidosis (Acute) HEDY (acute kidney injury) (Acute) Abscess of right upper extremity (Acute) Cellulitis (Acute) Severe sepsis (Acute) Encounter for Nexplanon removal (Acute) Hepatitis C antibody test positive (Acute) 12/2020. No viral load detected Patient desires (Acute) Routine screening for STI (sexually transmitted infection) (Acute) Foreign body (Acute) Irregular menses (Acute) Wears glasses (Chronic) with other poor obstetric history (Acute) 2017 IUFD at 37 weeks. Preeclampsia treated with labetalol . Positive UDS at time of delivery. Depression (Chronic) many years. 02/2018 restarted Fluoxetine at time of 6w PP visit. 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 Quit. Tobacco abuse disorder (Acute) Medical History Twin Hx of pre-eclampsia in prior , currently 2016. Present at time of admission for IUFD. Treated with labetalol for several months . 2018. IOL at term for elevated BP. LMP 05/23/2018 Cutaneous abscess of buttock (12/12/16) General counselling and advice on contraception (03/27/18) Declines all BC after 01/2018. Given written info on NFP. Goiter (04/30/13) Abscess of buttock, right Asthma Mild, exercise induced. Several years since use of inhalant. Dysmenorrhea Menorrhagia CSA age 8 Surgical History Tooth extraction [place] teeth age 18. No complications with anesthesia. Cholecystectomy 2007, open Family History Mother Diabetes Essential hypertension Heart disease Diverticula of small intestine Asthma Father Cirrhosis Hypertension Grandmother Diabetes Heart disease Hypertension Asthma Maternal Aunt Heart disease x2 Hypertension Brother Hypertension Social History Smoking/Tobacco Use Status: Current every day Smoking risk assessment performed?: Yes Alcohol Intake: former Drug use: Occasionally Substance use type: heroin Details: 01/17/21. pt reports no use in 3mo. Both she and her brother Frank have quit together Household members: family, children and other Details: Mother and Daughter Jessica &Twins not in her custody (per DCF order) Housing: homeless Number of Children: 3 Communication Needs: None and Corrective Lenses current occupation: Not working. Do you feel safe at home: Yes Do you feel safe in your relationship?: Yes Additional Social history: 12/2020. she and her brother Frank have moved to [facility] to live with youngest brother Arcadio. she and Frank have quit heroin x2mo. Arcadio does not use heroin. 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 Female Reproductive History Menstrual control method: none History History 2 3 Para 3 Hx # Term Pregnancies 2 Multiple births 1 Hx # Pregnancies 1 Ectopic pregnancies 0 AB induced 0 Hx Number of Living Children 3 AB spontaneous 0 Past Pregnancies Del. Date GA/Weeks # Preg Succ Route Wgt Sex Labor Lgth Anesth esia Location Prov Complic 12/01/16 37 No vaginal 4 lb Female [facility] 02/12/18 39 No vaginal 7 lb 7 oz Female 8 hrs regional N [facility] 01/14/19 30 Yes vaginal 3 lb 14 oz Female Renetta Weinstein 01/14/19 30 Yes vaginal 4 lb 4 oz Female Tracy Ruano Delivery Date: 12/01/16 Last Updated by: Tracy Ruano M.D. IUFD diagnosed at presentation. ? name Shavonne. Spontaneous labor delivered vaginally. Diagnosed with preeclampsia and treated with labetalol for several months . Positive UDS at the time of presentation in labor. Delivery Date: 02/12/18 Last Updated by: Tracy Ruano M.D. name: Jessica IOL for gestational HTN Delivery Date: 01/14/19 Last Updated by: Tracy Ruano M.D. Faviola. Transfered to [facility] [place] after delivery 2/ prematurity. remained x2mo Delivery Date: 01/14/19 Last Updated by: Tracy Ruano M.D. Anusha. transfered to NICU at [facility] [place] . Discharged after 2mo. Exam Const General: cooperative and no acute distress Nutritional Appearance: overweight Orientation: alert, awake and oriented x3 HENMT Head: normal to inspection Ears: hearing grossly normal bilaterally Eyes General: appearance normal, both eyes and all related structures Neck Neck: lymphadenopathy (right cervical), nontender and no tracheal deviation Resp Effort & Inspection: normal respiratory effort and able to speak in complete sentences Auscultation: clear to auscultation bilaterally Cardio Rate: regular rate Rhythm: regular rhythm Heart Sounds: S1 normal and S2 normal GI Palpation: soft, no guarding and nontender Percussion: normal to percussion Extrem General: normal to inspection Right upper extremity: edema, shoulder/upper arm (swollen), elbow/forearm (swollen), wrist (swollen) and hand (swollen) Other: There is swelling that extends from the hand up through the mid humerus. There is erythema over the anterior cubital fossa that extends up onto the biceps and the medial aspect of the upper arm. Also motor and sensation are preserved down through the hand. Range of motion is limited around the elbow because of pain from the soft tissue inflammation. The incision and drainage site is packed with quarter inch iodoform. I removed this and irrigated it. There is purulent fluid in the subcutaneous space that I rinsed clean. I replaced iodoform packing taking great care to get the base of the abscess cavity. There is an old blister just medial and slightly cephalad to the I&D site. Results Last Vital Signs Temp 98.1 F 10/14/24 15:56 Pulse 83 10/14/24 15:56 Resp 16 10/14/24 15:56 BP 93/54 L 10/14/24 15:56 Pulse Ox 96 10/14/24 15:56 Labs 10/15/24 06:28 10/15/24 06:28 Labs: Laboratory Results - last 24 hr 10/13/24 10/13/24 10/13/24 20:10 20:19 21:21 WBC 15.73 H RBC 4.62 Hgb 11.5 Hct 34.2 L MCV 74 L MCH 24.9 L MCHC 33.6 RDW 13.6 Plt Count 235 MPV 10.4 Immature Gran % 0.0 Neutrophils % 83.0 Lymphocytes % 8.0 Monocytes % 9.0 Eosinophils % 0.0 Basophils % 0.0 Nucleated RBC % 0.0 Absolute Neutrophils 13.06 H Absolute Lymphocytes 1.26 Absolute Monocytes 1.42 H Absolute Eosinophils 0.00 Absolute Basophils 0.00 RBC Morphology See Below Hypochromasia 2+ Microcytosis 3+ ESR 61 H VBG Lactate 3.3 H* Sodium 130 L Potassium 2.7 L* Chloride 92 L Carbon Dioxide 27.2 Anion Gap 10.8 BUN 25 H Creatinine 1.3 H Est GFR (CKD-EPI 2020) 57.09 Glucose 97 Calcium 8.6 Magnesium 1.7 L Total Bilirubin 0.6 AST 30 ALT 20 Alkaline Phosphatase 104 Troponin I 7 C-Reactive Protein 20.26 H Total Protein 7.5 Albumin 2.8 L Serum HCG, Qual Negative Random Vancomycin Urine Opiates Screen Negative Urine Methadone Screen Negative Ur Barbiturates Screen Negative Ur Tricyclics Screen Negative Ur Amphetamines Screen Negative U Benzodiazepines Scrn Negative Urine Cocaine Screen Positive A Ur THC Screen Positive A 10/13/24 10/13/24 10/14/24 22:35 23:58 06:35 WBC 14.34 H RBC 3.88 L Hgb 9.8 L Hct 28.8 L MCV 74 L MCH 25.3 L MCHC 34.0 RDW 13.7 Plt Count 214 MPV 10.6 Immature Gran % Neutrophils % Lymphocytes % Monocytes % Eosinophils % Basophils % Nucleated RBC % Absolute Neutrophils Absolute Lymphocytes Absolute Monocytes Absolute Eosinophils Absolute Basophils RBC Morphology Hypochromasia Microcytosis ESR VBG Lactate 1.6 Sodium 134 L Potassium 3.4 L Chloride 99 Carbon Dioxide 27.3 Anion Gap 7.7 BUN 18 Creatinine 0.9 Est GFR (CKD-EPI 2020) 88.75 Glucose 100 Calcium 8.3 L Magnesium 1.9 Total Bilirubin AST ALT Alkaline Phosphatase Troponin I 7 < 4 C-Reactive Protein Total Protein Albumin Serum HCG, Qual Random Vancomycin 14.2 Urine Opiates Screen Urine Methadone Screen Ur Barbiturates Screen Ur Tricyclics Screen Ur Amphetamines Screen U Benzodiazepines Scrn Urine Cocaine Screen Ur THC Screen
[2024-10-14] MEDS: VANCOMYCIN 1,250 MG in Normal Saline 250 ML 166 MG IVPB (20:24)
[2024-10-15] MEDS: CEFEPIME 2 GM in Normal Saline 100 ML IVPB ×3 (00:41→16:16)
[2024-10-15] MEDS: HYDROmorphone 2 MG/ML SYR 1 MG IVP ×5 (00:43→20:33)
[2024-10-15] MEDS: Normal Saline Flush 10 ML SYR IVP ×7 (00:46→20:32)
[2024-10-15] MEDS: POTASSIUM CHLORIDE/0.9% NACL 1,000 ML 100 MEQ IV (01:25)
[2024-10-15 07:15] LABS: Abs Immature Grans 0.39 10^3/uL (0.0-0.06); Absolute Basophil Count 0.06 10^3/uL (0.0-0.2); Absolute Eosinophil Count 0.12 10^3/uL (0.0-0.7); Absolute Lymphocyte Count 2.05 10^3/uL (1.2-3.4); Absolute Monocyte Count 0.91 10^3/uL (0.1-0.8); Absolute Neutrophil Count 6.97 10^3/uL (1.2-6.7); Basophils % 0.6 %; Eosinophils % 1.1 %; HCT 26.8 % (36.0-46.0); Immature Grans % 3.7 %; Lymphocytes % 19.5 %; MCH 25.4 pg (27.0-33.0); MCHC 33.6 % (32.0-36.0); MCV 76 fL (80-95); MPV 10.5 fL (8.0-11.0); Monocytes % 8.7 %; Neutrophils % 66.4 %; Platelet Count 229 10^3/uL (130-400); RBC 3.55 10^6/uL (3.93-5.22); RDW 14.1 % (11.7-14.6); RDW-SD 38.7 fL
[2024-10-15 07:31] LABS: Anion Gap 7.5 mmol/L (3-11); BUN 8 mg/dL (7-18); CO2 25.5 mmol/L (21.0-32.0); CREATININE 0.8 mg/dL (0.55-1.02); Calcium 8.1 mg/dL (8.5-10.1); Chloride 103 mmol/L (98-107); Estimated GFR 102.22 (mL/min/1.73m2); Glucose 92 mg/dL (74-106); Potassium 3.5 mmol/L (3.5-5.1); Sodium 136 mmol/L (136-145)
[2024-10-15 07:46] VITALS: BP 107/69; PULSE 69; RESP 17; TEMP 37.2; O2SAT 97
[2024-10-15] MEDS: Apixaban 5 MG TAB 10 MG PO ×2 (09:04→20:32)
[2024-10-15] MEDS: VANCOMYCIN 1,250 MG in Normal Saline 250 ML 167 MG IVPB (09:51)
--- NOTE | 2024-10-15 10:13 | PGE_ITS ---
Date of Service Date of service: 10/15/24 Time of Service: 10:00 Assessment and Plan Assessment and plan (1) Severe sepsis: Start date: 10/15/24 Start time: 11:39 Status: Acute Assessment and plan: -On admission -patient met criteria for severe sepsis on admission with HR ~110bpm, WBC 15, source of infection being RUE cellulitis and abscess, HEDY with Cr 1.3 (baseline ~0.6) and lactic acid of 3.3 -CT of RUE showed multiple abscesses , please see report -patient started on vanc and zosyn in ED, will switch to vanc and cefepime given HEDY and risk of worsening kidney function with vanc/zosyn combo -Zosyn d/c and now on cefepime -Blood Cx # 1 w GPC in chains further results pending - Blood Cx #2 still pending results -Continue to f/u blood cultures and repeat until negative -Elevated lactic acid on admit then normal at 1.3 -Surgery consult ongoing: no OR at this time - wound dressing regimen ordered- please read notes -abscess drained in ED, follow-up wound culture results repeated order was still pending -Decreased ROM to R elbow joint -10/14/24- orthopedic consult please read notes: Will continue to monitor (2) Cellulitis: Start date: 10/15/24 Start time: 11:50 Status: Acute Assessment and plan: CT findings of multiple abscessed appears to be the source of severe sepsis on presentation -And as above (3) Abscess of right upper extremity: Start date: 10/15/24 Start time: 11:50 Status: Acute Assessment and plan: -As above (4) HEDY (acute kidney injury): Start date: 10/15/24 Start time: 11:47 Status: Acute Assessment and plan: -Resolved - D/c IVF BMP in AM (5) Lactic acidosis: Start date: 10/15/24 Start time: 11:47 Status: Acute Assessment and plan: Resolved -In the setting of severe sepsis as noted above - no further trending (6) Deep vein thrombosis (DVT) of axillary vein of right upper extremity: Start date: 10/15/24 Start time: 11:48 Status: Acute Assessment and plan: -Dx as per CT of right upper extremity: Deep venous thrombosis is well as superficial venous thrombosis. - Continue Eliquis 10 mg BID X 7 days then transition to 5 mg BID maintena nce (7) IV drug user: Start date: 10/15/24 Start time: 11:50 Status: Acute Assessment and plan: -likely reason or infection as patient stated she injected IV drugs into her right AC - Not on suboxone since out of incarceration - will try to go back to her outpatient program- not interested in naltrexone - Also mentioned using xylazine at the healing ulcer site to her left forearm -Monitor for w/d -Clonidine PRN Discussed with Dr. Colon Subjective Subjective Patient reports: no new complaints, still having pain, pain is less, tolerating liquids well, tolerating a regular diet, voiding w/o difficulty and no bowel movement (reports no BM at least a week [employer]); denies nausea, vomiting, shortness of breath or fever Exam Narrative Exam Narrative: Constitutional The patient without acute distress HENMT: Facial structures with normal appearance Neuro:alert and oriented X4 , non focal Resp: Unlabored breathing, clear lung bilaterally Cardio: regular rhythm, S1, S2, no murmur, capillary refill<3 sec to RUE, positive right radial/ulnar pulses GI: Abdomen is not distended, soft and non tender, bowel sounds are present : Negative Costovertebral angle tenderness Back/spine/Pelvis: No back tenderness, normal alignment Integumentary: RUE limited redness mid arm and mid- forearm- seems to have progressed toward shoulder RN trace , improved swelling, dressing DCI Extremities: RUE limited flexion 20 degrees / limited ext 50 degrees w/o tremendous pain during mobilization Psych: RASS 0, congruent mood and normal to flat affect. Objective Last Vital Signs Temp 37.2 C 10/15/24 07:46 Pulse 69 10/15/24 07:46 Resp 17 10/15/24 07:46 BP 107/69 10/15/24 07:46 Pulse Ox 97 10/15/24 07:46 Laboratory Results - last 24 hr 10/15/24 06:28 WBC 10.50 RBC 3.55 L Hgb 9.0 L Hct 26.8 L MCV 76 L MCH 25.4 L MCHC 33.6 RDW 14.1 Plt Count 229 MPV 10.5 Immature Gran % 3.7 Neutrophils % 66.4 Lymphocytes % 19.5 Monocytes % 8.7 Eosinophils % 1.1 Basophils % 0.6 Nucleated RBC % 0.0 Absolute Neutrophils 6.97 H Absolute Lymphocytes 2.05 Absolute Monocytes 0.91 H Absolute Eosinophils 0.12 Absolute Basophils 0.06 Sodium 136 Potassium 3.5 Chloride 103 Carbon Dioxide 25.5 Anion Gap 7.5 BUN 8 Creatinine 0.8 Est GFR (CKD-EPI 2020) 102.22 Glucose 92 Calcium 8.1 L Time Spent with Patient Time Spent with Patient: >50 minutes Time was spent: preparing to see the patient(eg.review tests), obtaining and/or reviewing separately otained hiistory, ordering medications,tests, procedures, referring, communicating with other health coronary care unit nurse, indepentently interpreting results, counseling the patient and care coordination
--- NOTE | 2024-10-15 10:28 | W.PM.PROGNOT ---
Date of Service Date of service: 10/15/24 Time of Service: 10:28 Assessment and Plan Assessment and plan (1) Abscess of right upper extremity: Status: Acute Assessment and plan: Patient with severe cellulitis from a right upper extremity abscess resulting in thrombosis. The abscess was drained and there is still a serious cellulitis with swelling and erythema but fever and leukocytosis are resolving. I recommend continued supportive care with IV antibiotics and stricter arm elevation. Continue dressing changes as you are doing and surgical service will continue to follow along with you. Sometimes it requires some time to treat the cellulitis to determine if there is any residual nidus of abscess to be drained. The arm likely looks much worse than the usual cellulitis from abscess because of the concomitant thrombosis leading to such extreme swelling. Subjective Subjective Interval history since last seen: Patient still has considerable pain of the right arm and states that she is keeping it elevated on pillows when she is lying flat at night. She is not clear as to whether it looks better than yesterday. The upper part of the wrap bothers her substantially. Exam Narrative Exam Narrative: Patient is sitting up in bed with her breakfast tray. Her right arm is down in a dependent position and there is an Adolfo wrap from the hand to the axilla. This is actually 3 separate wraps. The fingers are quite swollen on the right compared with the left but are warm. The patient is alert and cooperative and not in any distress other than when the right arm is being manipulated. Extrem Other: The upper 2 Adolfo wrap's are removed revealing a small wick at the antecubital fossa with surrounding intense erythema, 1 small medial blister, very exquisitely tender to palpation, unable to express any purulence around the wick. In the proximal forearm there is an area of increased erythema and swelling but that seems to be related to the wrap, possibly being too tight in that area. Objective Last Vital Signs Temp 37.2 C 10/15/24 07:46 Pulse 69 10/15/24 07:46 Resp 17 10/15/24 07:46 BP 107/69 10/15/24 07:46 Pulse Ox 97 10/15/24 07:46 Laboratory Results - last 24 hr 10/15/24 06:28 WBC 10.50 RBC 3.55 L Hgb 9.0 L Hct 26.8 L MCV 76 L MCH 25.4 L MCHC 33.6 RDW 14.1 Plt Count 229 MPV 10.5 Immature Gran % 3.7 Neutrophils % 66.4 Lymphocytes % 19.5 Monocytes % 8.7 Eosinophils % 1.1 Basophils % 0.6 Nucleated RBC % 0.0 Absolute Neutrophils 6.97 H Absolute Lymphocytes 2.05 Absolute Monocytes 0.91 H Absolute Eosinophils 0.12 Absolute Basophils 0.06 Sodium 136 Potassium 3.5 Chloride 103 Carbon Dioxide 25.5 Anion Gap 7.5 BUN 8 Creatinine 0.8 Est GFR (CKD-EPI 2020) 102.22 Glucose 92 Calcium 8.1 L Time Spent with Patient Time Spent with Patient: <25 minutes Time was spent: preparing to see the patient(eg.review tests), obtaining and/or reviewing separately otained hiistory and counseling the patient
[2024-10-15 11:26] VITALS: BP 101/60; PULSE 83; RESP 14; TEMP 36.9; O2SAT 94
[2024-10-15] MEDS: Polyethylene Glycol 3350 17 GM PACKET PO ×2 (11:55→20:31)
[2024-10-15 15:04] VITALS: BP 105/63; PULSE 79; RESP 14; TEMP 37.1; O2SAT 100
[2024-10-15 15:34] VITALS: BP 106/66; PULSE 74; RESP 18; TEMP 36.7; O2SAT 97
--- NOTE | 2024-10-15 16:15 | PDOC.CMPRO ---
Date of service: 10/15/24 Time of Service: 16:15 Care Management Progress Note Progress Note Text Progress Note Text: Sugar was napping earlier in the day when CM went to meet with her. Later this afternoon, she was awake and agreeable to talking. She was quiet, however. Her brother, Katerina, came in shortly thereafter, and Sugar perked right up. Sugar stated that she is not sleeping well due to the pain in her arm, which she rated a 10/10. Her nurse was going to medicate her with pain medication prior to changing her dressing. Katerina is going to be taught how to do the dressing changes. Sugar is aware that she will not be able to have HH to help her with the changes, as she does not have an address. Katerina is very willing to help his sister in this way. Discharge Potential Discharge Needs: Surgical F/U Appt and Other (will need to establish with a PCP, T-doc is [facility] , Nichol Milton) Anticipated Barriers to Discharge: None Identified Patient/Family Education Needs: Review discharge instructions, discuss Ask Me Three Transportation: [facility] (busline) Plan: Anticipate that Sugar will be discharged once medically stable. She will f/u at [facility] at an appointment that will be made for her prior to discharge. She will transport home via the [facility] bus vs private ride from a friend. CM will continue to follow and to update the plan as needed. Social Determinants of Health Screening Will the Patient Participate in the Screening?: Declined to provide
[2024-10-15 19:16] VITALS: BP 111/70; PULSE 77; RESP 18; TEMP 36.8; O2SAT 94
[2024-10-15 19:38] LABS: Vancomycin, Trough 9.7 ug/mL (10.0-20.0)
[2024-10-15] MEDS: Docusate Sodium 100 MG CAP PO (20:32)
[2024-10-16] VITALS (23 sets, daily range): BP systolic 103–131; BP diastolic 63–85; PULSE 65–86; RESP 7–18; TEMP 36.4–37.3; O2SAT 93–98; BMI 26.8
[2024-10-16] MEDS: HYDROmorphone 2 MG TAB PO ×5 (00:35→23:57)
[2024-10-16 07:05] LABS: Abs Immature Grans 0.23 10^3/uL (0.0-0.06); Absolute Basophil Count 0.07 10^3/uL (0.0-0.2); Absolute Eosinophil Count 0.11 10^3/uL (0.0-0.7); Absolute Lymphocyte Count 2.03 10^3/uL (1.2-3.4); Absolute Monocyte Count 0.57 10^3/uL (0.1-0.8); Absolute Neutrophil Count 6.21 10^3/uL (1.2-6.7); Basophils % 0.8 %; Eosinophils % 1.2 %; HCT 25.5 % (36.0-46.0); HGB 8.5 g/dL (11.2-15.7); Immature Grans % 2.5 %; MCH 24.9 pg (27.0-33.0); MCHC 33.3 % (32.0-36.0); MCV 75 fL (80-95); Monocytes % 6.2 %; Neutrophils % 67.3 %; Platelet Count 326 10^3/uL (130-400); RBC 3.42 10^6/uL (3.93-5.22); RDW 14.3 % (11.7-14.6); RDW-SD 38.5 fL; WBC 9.22 10^3/uL (4.4-10.8)
[2024-10-16 07:21] LABS: BUN 4 mg/dL (7-18); CREATININE 0.7 mg/dL (0.55-1.02); Calcium 8.1 mg/dL (8.5-10.1); Chloride 104 mmol/L (98-107); Estimated GFR 119.99 (mL/min/1.73m2); Glucose 87 mg/dL (74-106); Potassium 3.7 mmol/L (3.5-5.1); Sodium 137 mmol/L (136-145)
[2024-10-16 07:28] LABS: Diff Comment Diff Reviewed; Hypochromasia 2+; Microcytosis 2+
[2024-10-16] MEDS: Linezolid 600 MG TAB PO (08:56)
[2024-10-16] MEDS: Docusate Sodium 100 MG CAP PO ×3 (08:56→19:48)
[2024-10-16] MEDS: Polyethylene Glycol 3350 17 GM PACKET PO ×2 (08:56→19:49)
[2024-10-16] MEDS: Apixaban 5 MG TAB 10 MG PO ×2 (08:56→19:48)
--- NOTE | 2024-10-16 09:53 | W.PM.PROGNOT ---
Date of Service Date of service: 10/16/24 Time of Service: 09:53 Assessment and Plan Assessment and plan (1) Severe sepsis: Start date: 10/16/24 Start time: 17:07 Status: Acute Assessment and plan: -On admission -patient met criteria for severe sepsis on admission with HR ~110bpm, WBC 15, source of infection being RUE cellulitis and abscess, HEDY with Cr 1.3 (baseline ~0.6) and lactic acid of 3.3 -CT of RUE showed multiple abscesses , please see report -patient started on vanc and zosyn in ED, then changed to cefepime given HEDY and risk of worsening kidney function with vanc/zosyn combo -Transitioned to Zyvox d/t GPC in blood and plan to d/c on oral w Hx of MRSA -Blood Cx # 1 w strep pyogenes Group A this PM - 10/14 Blood Cx #2 negative X 48 hours -Elevated lactic acid on admit resolved within 24 hours -Surgery consult ongoing: OR this PM for further I&D- recommendation to hold Eliquis if dressing/COURTNEY wrap is saturated only-Observation tonight to monitor bleeding -abscess intially drained in ED, -Wound cultures:strep pyogenes Group A -Decreased ROM to R elbow joint improving today -10/14/24- orthopedic consult please read notes: Will continue to monitor (2) Cellulitis: Start date: 10/16/24 Start time: 17:07 Status: Acute Assessment and plan: On admission CT findings of multiple abscessed appears to be the source of severe sepsis on presentation -And as above (3) Abscess of right upper extremity: Start date: 10/15/24 Start time: 11:50 Status: Acute Assessment and plan: -As above (4) HEDY (acute kidney injury): Start date: 10/16/24 Start time: 11:47 Status: Acute Assessment and plan: -Resolved - D/c IVF encourage oral fluids (5) Lactic acidosis: Start date: 10/16/24 Start time: 11:47 Status: Acute Assessment and plan: Resolved within 24 hours of admission for severe sepsis as noted above - no further trending (6) Deep vein thrombosis (DVT) of axillary vein of right upper extremity: Start date: 10/16/24 Start time: 11:48 Status: Acute Assessment and plan: -Dx as per CT of right upper extremity: Deep venous thrombosis is well as superficial venous thrombosis. - Continue Eliquis 10 mg BID X 7 days then transition to 5 mg BID maintenance (7) IV drug user: Start date: 10/16/24 Start time: 11:50 Status: Acute Assessment and plan: -likely reason or infection as patient stated she injected IV drugs into her right AC - Not on suboxone since out of incarceration - will try to go back to her outpatient program- not interested in naltrexone -Mentioned injecting the suboxone d/t nausea and swelling with enteral intake - Also mentioned using xylazine at the healing ulcer site to her left forearm -Continue to monitor for w/d -Clonidine PRN ordered (8) Discharge planning issues: Status: Acute Assessment and plan: Likely to be d/c in AM on oral antibiotics Brother educated in dressing change Supply to be given at d/c as per CM Discussed with Dr. Colon Subjective Subjective Patient reports: no new complaints, still having pain, tolerating liquids well, tolerating a regular diet, voiding w/o difficulty, flatus and no bowel movement; denies nausea, vomiting, shortness of breath or fever Exam Narrative Exam Narrative: Constitutional The patient without acute distress HENMT: Facial structures with normal appearance Neuro:alert and oriented X4, noo focal deficits Resp:Clear lungs bilaterally Cardio: regular rhythm, S1, S2, no murmur, capillary refill<3 sec to RUE digits , positive right radial pulse GI: Abdomen is not distended, soft and non tender, bowel sounds are present : Negative Costovertebral angle tenderness Back/spine/Pelvis: No back tenderness Integumentary: RUE limited redness mid arm and mid- forearm- has not progressed toward shoulder ; improved swelling, dressing DCI Extremities: Still RUE limited flexion/ extension but improving Psych: RASS 0, congruent mood and normal to flat affect. Objective Last Vital Signs Temp 36.8 C 10/16/24 07:34 Pulse 68 10/16/24 07:34 Resp 16 10/16/24 07:34 BP 117/71 10/16/24 07:34 Pulse Ox 96 10/16/24 07:34 Laboratory Results - last 24 hr 10/15/24 10/16/24 18:48 06:13 WBC 9.22 RBC 3.42 L Hgb 8.5 L Hct 25.5 L MCV 75 L MCH 24.9 L MCHC 33.3 RDW 14.3 Plt Count 326 MPV 10.0 Immature Gran % 2.5 Neutrophils % 67.3 Lymphocytes % 22.0 Monocytes % 6.2 Eosinophils % 1.2 Basophils % 0.8 Nucleated RBC % 0.0 Absolute Neutrophils 6.21 Absolute Lymphocytes 2.03 Absolute Monocytes 0.57 Absolute Eosinophils 0.11 Absolute Basophils 0.07 RBC Morphology See Below Hypochromasia 2+ Microcytosis 2+ Sodium 137 Potassium 3.7 Chloride 104 Carbon Dioxide 27.0 Anion Gap 6.0 BUN 4 L Creatinine 0.7 Est GFR (CKD-EPI 2020) 119.99 Glucose 87 Calcium 8.1 L Vancomycin Trough 9.7 L Time Spent with Patient Time Spent with Patient: >50 minutes Time was spent: preparing to see the patient(eg.review tests), obtaining and/or reviewing separately otained hiistory, ordering medications,tests, procedures, referring, communicating with other health family day care worker, indepentently interpreting results, counseling the patient and care coordination
[2024-10-16 11:06] LABS: Iron 25 ug/dL (50-170); Total Iron Binding Capacity 160 ug/dL (250-450); Transferrin Sat 16 % (15-50)
[2024-10-16 11:29] LABS: Ferritin 234 ng/mL (8-252)
--- NOTE | 2024-10-16 13:07 | PDOC.ANES ---
Date of service: 10/16/24 Time of Service: 13:08 Anesthesia Note Report Anesthesia Note: Discussed plan of MAC/moderate sedation with patient and surgeon, patient willing to proceed. Of note Nursing made surgeon aware that patient has no IV access. Per nursing many attempts, not noted in documentation that I can see. Reports having told physician last night and transitioned over to PO medications. Not seeing this communication in the chart. At this time I have asked for the patient to come to PACU and I will work on establishing access here in the PACU.
--- NOTE | 2024-10-16 13:10 | ANES.PREOP_ITS ---
General Info Date of Service Date Performed: 10/16/24 Height: 6 ft Weight: 89.8 kg Body Mass Index (BMI): 26.8 Surgical Procedure: Operation Date: 10/16/24 12:55 Proposed Procedure Side Surgeon p I&D Forearm Abscessi X2 Sen Hinojosa MD Meds Allergies and Home Medications Allergies Allergy/AdvReac Type Severity Reaction Status Date / Time acetaminophen AdvReac Intermediate Nausea Verified 10/13/24 19:56 ibuprofen AdvReac Intermediate Intestinal Verified 10/13/24 19:56 Cramping NSAIDS (Non-Steroidal AdvReac Intermediate Nausea Verified 10/13/24 19:56 Anti-Inflamma vicryl stitches AdvReac Intermediate infection Uncoded 10/13/24 19:56 in skin Home Medication ?Medication ?Instructions ?Recorded fluoxetine 40 mg capsule (Prozac) 40 mg PO DAILY #60 caps 01/07/19 [id number] 28 mg 1 cap PO DAILY #90 caps 01/17/21 iron-folic acid 1 mg-omg3 200 mg capsule (C-Alex DHA) linezolid 600 mg tablet 600 mg PO BID #24 tabs 10/16/24 Current Visit Medications: Current Medications Generic Name Dose Route Start Last Admin Trade Name Freq PRN Reason Stop Dose Admin Apixaban 10 mg 10/14/24 00:10 10/16/24 08:56 Apixaban 5 Mg Tab PO 10 mg BID KAYLEN Administration Clonidine 0.1 mg 10/15/24 11:48 Clonidine 0.1 Mg Tab PO TID PRN PRN Docusate Sodium 100 mg 10/14/24 00:45 Docusate Sodium 100 Mg Cap PO TID PRN PRN Docusate Sodium 100 mg 10/15/24 11:35 10/16/24 08:56 Docusate Sodium 100 Mg Cap PO 100 mg TID KAYLEN Administration Hydromorphone HCl 2 mg 10/15/24 22:13 10/16/24 09:20 Hydromorphone 2 Mg Tab PO 2 mg Q4H PRN PRN Administration IV Miscellaneous Supplies 1 each 10/14/24 00:45 Iv Access IV DIRECTED KAYLEN IV Miscellaneous Supplies 1 each 10/16/24 12:29 Iv Access IV DIRECTED KAYLEN Linezolid 600 mg 10/16/24 08:30 10/16/24 08:56 Linezolid 600 Mg Tab PO 600 mg BID KAYLEN Administration Polyethylene Glycol 17 gm 10/14/24 00:45 10/15/24 11:55 Polyethylene Glycol 3350 17 Gm Packet PO 17 gm DAILY PRN PRN Administration Constipation Polyethylene Glycol 17 gm 10/15/24 20:00 10/16/24 08:56 Polyethylene Glycol 3350 17 Gm Packet PO 17 gm BID KAYLEN Administration Sodium Chloride 0 ml 10/14/24 00:45 10/15/24 16:17 Normal Saline Flush 10 Ml Syr IVP 20 ml PRN PRN Administration Sodium Chloride 0 ml 10/14/24 08:30 10/16/24 08:56 Normal Saline Flush 10 Ml Syr IVP Not Given BID KAYLEN Sodium Chloride 0 ml 10/14/24 00:45 Normal Saline 10 Ml Vial IJ DIRECTED PRN Sodium Chloride 0 ml 10/16/24 12:42 Normal Saline Flush 10 Ml Syr IVP PRN PRN Sodium Chloride 0 ml 10/16/24 20:00 Normal Saline Flush 10 Ml Syr IVP BID KAYLEN Sodium Chloride 0 ml 10/16/24 12:42 Normal Saline 10 Ml Vial IJ DIRECTED PRN PFSH Active Problems Active Problems: Problem Status Onset Code Deep vein thrombosis (DVT) of axillary vein of right upper extremity Acute I82.A11 IV drug user Acute F19.90 Lactic acidosis Acute E87.20 HEDY (acute kidney injury) Acute N17.9 Abscess of right upper extremity Acute L02.413 Cellulitis Acute L03.90 Severe sepsis Acute A41.9, R65.20 Encounter for Nexplanon removal Acute Z30.46 Hepatitis C antibody test positive Acute R76.8 Patient desires Acute Z31.9 History of hypothyroidism Resolved Z86.39 Routine screening for STI (sexually transmitted infection) Acute Z11.3 Foreign body Acute Irregular menses Acute N92.6 Wears glasses Chronic with other poor obstetric history Acute O09.299 Chronic low back pain Resolved 07/01/ M54.5, G89.29 Depression Chronic History of illicit drug use Acute Z87.898 Tobacco abuse disorder Acute Z72.0 Medical History Medical History Twin Hx of pre-eclampsia in prior , currently 2016. Present at time of admission for IUFD. Treated with labetalol for several months . 2018. IOL at term for elevated BP. LMP 05/23/2018 Cutaneous abscess of buttock (12/12/16) General counselling and advice on contraception (03/27/18) Declines all BC after 01/2018. Given written info on NFP. Goiter (04/30/13) Abscess of buttock, right Asthma Mild, exercise induced. Several years since use of inhalant. Dysmenorrhea Menorrhagia CSA age 8 Surgical History Surgical History Tooth extraction [place] teeth age 18. No complications with anesthesia. Cholecystectomy 2007, open Tobacco Smoking/Tobacco Use Status: Current every day Alcohol Alcohol Intake: former Substance Use Substance use: Occasionally Substance use type: heroin Details: 01/17/21. pt reports no use in 3mo. Both she and her brother Frank have quit together Prental History History 2 3 Para 3 Hx # Term Pregnancies 2 Multiple births 1 Hx # Pregnancies 1 Ectopic pregnancies 0 AB induced 0 Hx Number of Living Children 3 AB spontaneous 0 Past Pregnancies Del. Date GA/Weeks # Preg Succ Route Wgt Sex Labor Lgth Anesth esia Location [facility] 12/01/16 37 No vaginal 1814.369 g Female [facility] 02/12/18 39 No vaginal 3373.593 g Female 8 hrs [facility] - [facility]. Tellez 01/14/19 30 Yes vaginal 1757.67 g Female Tracy Ruano 01/14/19 30 Yes vaginal 1927.768 g Female Renetta Ruano Delivery Date: 12/01/16 Last Updated by: Tracy Ruano M.D. IUFD diagnosed at presentation. ? name Shavonne. Spontaneous labor delivered vaginally. Diagnosed with preeclampsia and treated with labetalol for several months . Positive UDS at the time of presentation in labor. Delivery Date: 02/12/18 Last Updated by: Tracy Rauno M.D. name: Jessica IOL for gestational HTN Delivery Date: 01/14/19 Last Updated by: Tracy Ruano M.D. Faviola. Transfered to [facility] after delivery 2/2 prematurity. remained x2mo Delivery Date: 01/14/19 Last Updated by: TracyClaribel Boss. transfered to NICU at [facility] . Discharged after 2mo. Vital Signs and Lab Results Vital Signs Most Recent Vital Signs in EMR: Most Recent Vital Signs Temp Pulse Resp BP Pulse Ox 36.8 C 68 16 113/69 96 10/16/24 12:55 10/16/24 12:55 10/16/24 12:55 10/16/24 12:55 10/16/24 12:55 Point of Care Results Point of Care Results: POC- Test(urine) Negative 10/13/24 21:25 Lab Results 10/16/24 06:13 10/16/24 06:13 Blood Type / Crossmatch: 2 No Data to Display Complete Blood Count: 2 White Blood Count 9.22 10^3/uL (4.4-10.8) 10/16/24 06:13 Red Blood Count 3.42 10^6/uL (3.93-5.22) L 10/16/24 06:13 Hemoglobin 8.5 g/dL (11.2-15.7) L 10/16/24 06:13 Hematocrit 25.5 % (36.0-46.0) L 10/16/24 06:13 Platelet Count 326 10^3/uL (130-400) 10/16/24 06:13 Venous Blood Lactate 1.6 mmol/L (<or=2.0) 10/13/24 23:58 Complete Metabolic Panel: 2 Sodium 137 mmol/L (136-145) 10/16/24 06:13 Potassium 3.7 mmol/L (3.5-5.1) 10/16/24 06:13 Chloride 104 mmol/L (98-107) 10/16/24 06:13 Carbon Dioxide 27.0 mmol/L (21.0-32.0) 10/16/24 06:13 BUN 4 mg/dL (7-18) L 10/16/24 06:13 Creatinine 0.7 mg/dL (0.55-1.02) 10/16/24 06:13 Est GFR (CKD-EPI 2020) 119.99 (mL/min/1.73m2) 10/16/24 06:13 Magnesium 1.9 mg/dL (1.8-2.4) 10/14/24 06:35 Calcium 8.1 mg/dL (8.5-10.1) L 10/16/24 06:13 Albumin 2.8 g/dL (3.4-5.0) L 10/13/24 20:10 Glucose 87 mg/dL (74-106) 10/16/24 06:13 C-Reactive Protein 20.26 mg/dL (<or=0.5) H 10/13/24 20:10 Liver Function Panel: 2 Alanine Aminotransferase (ALT/SGPT) 20 U/L (14-59) 10/13/24 20: 10 Aspartate Amino Transf (AST/SGOT) 30 U/L (15-37) 10/13/24 20:10 Coagulation Panel: 2 No Data to Display Cardiac Panel: 2 Troponin I < 4 ng/L (<or=51) 10/13/24 Arterial Blood Gas: 2 No Data to Display Venous Blood Gas: 2 No Data to Display Pancreas Panel: 2 No Data to Display Thyroid Panel: 2 No Data to Display Infectious Disease: 2 No Data to Display Blood Cultures: 2 No Data to Display Toxicology Panel: 2 Urine Amphetamines Screen Negative (Negative) 10/13/24 21:21 Urine Benzodiazepines Screen Negative (Negative) 10/13/24 21:2 1 Urine Barbiturates Screen Negative (Negative) 10/13/24 21:21 Urine Cocaine Screen Positive (Negative) A 10/13/24 21:21 Urine Methadone Screen Negative (Negative) 10/13/24 21:21 Urine Opiates Screen Negative (Negative) 10/13/24 21:21 Ur Tricyclic Antidepressants Screen Negative (Negative) 21:21 Ur Tetrahydrocannabinol (THC) Scrn Positive (Negative) A 10/13 21:21 Panel: 2 Serum HCG, Qualitative Negative 10/13/24 20:10 Anesthesia Assessment and Plan Anesthesia History Personal History: No History of Anesthesia Complications Family History: No Family History of Anesthesia Complications Exercise Tolerance Exercise Tolerance: Metabolic Equivalents>4 Pertinent Negatives Pertinent Negatives: No Symptoms of GERD, No Major Cardiovascular Symptoms or Complaints and No History of CVA/TIA Cardiac & Pulmonary Exam Cardiac Exam: Normal S1/S2 Heart Sounds Pulmonary Exam: Clear Bilateral Breath Sounds Implantable Cardiac Device Does patient have a Pacemaker or an ICD?: No Airway Exam Known Difficult Airway: No Mallampati Class: 2 Mouth Opening: Normal (> 3cm) Thyromental Distance: Greater than 3 cm Neck Range of Motion: Full ROM Neck Circumference: Normal Teeth Condition: Normal Dentition ASA Classification ASA Score: ASA 2 Emergency Case?: Yes NPO Status NPO Status: NPO Clear Liquids>2 hours Status Status: Negative HCG Anesthesia Plan Resuscitation Status: Full Code Anesthesia Technique: General Anesthesia Airway Planned: Natural Airway Monitors Used: Standard Monitors
[2024-10-16] MEDS: Lidocaine 4% Cream 5 GM TUBE TP (13:22)
[2024-10-16] MEDS: Lactated Ringers 1,000 ML 30 ML IV ×2 (13:40→16:06)
[2024-10-16] MEDS: Bupivacaine 0.5% Pres-Free W/EPI 30 ML VIAL (13:47)
--- NOTE | 2024-10-16 13:58 | W.PM.OP ---
Operative Note Operative Note PRE-OP DIAGNOSIS: Right arm abscesses POST-OP DIAGNOSIS: same PROCEDURE: Incision and drainage of abscesses on the distal right wrist, proximal right antecubital fossa, right biceps SURGEON: Sen Hinojosa ANESTHESIA TYPE: Local By Surgeon and MAC Refer to Anesthesia Record ESTIMATED BLOOD LOSS: 10 PATHOLOGY: none sent COMPLICATIONS: None Patient was transported to: PACU Patient's condition: stable Indications: Sugar is a 29-year-old woman with right upper extremity cellulitis and abscesses. She has extensive clot burden throughout the right upper extremity. She is already gone incision and drainage of the right antecubital fossa with some improvement of her symptoms, however over the past 36 hours, she has developed 3 new discrete abscesses that would benefit from drainage. We talked about the risks of the procedure, which are mostly related to bleeding given her need for therapeutic anticoagulation with extensive venous thrombosis. All of this seems to be quite superficial, and although bleeding may be challenging, the benefits of drainage seem to outweigh any bleeding risk at this point. Findings: Abscess of the right wrist, proximal right antecubital fossa, and right upper arm overlying the biceps Procedure Description: Sugar was brought to the operating room, and the right upper extremity was prepped and draped. After initiation of some conscious sedation, I began by anesthetizing the area of the right lateral wrist. I established a generous field block using local anesthetic with epinephrine. Next, I made a small transverse incision. There was immediate drainage of old blood clot, and purulent fluid. The wound was milked clean. It was irrigated. It was then packed with iodoform gauze. This abscess cavity is approximately 1 cm wide by about 2 cm deep. Next, I turned my attention to the antecubital fossa. There was some packing in the I&D site from previous drainage. This was removed. The new abscessed appeared to be a little bit lateral to this. Again, field block was established with local anesthetic and epinephrine. Transverse incision was made, and there was immediate drainage of purulent fluid. Similar to the first, this was irrigated clean, and then packed with quarter inch iodoform gauze. I would estimate this abscess cavity to be about 2 cm wide by about 3 cm long. Finally, I turned my attention to the area around the right biceps. It slightly on the lateral aspect of the arm. Local anesthetic with epinephrine was used here, and another incision was made over the area of greatest fluctuance. Similar to the first 2 wounds, there was immediate drainage of thick purulent fluid. This was also milked clean, and then irrigated. This was packed with iodoform gauze in a manner identical to the other 2 abscess cavities. This patient already has positive blood cultures, as well as culture data from the previous wound, so new cultures were not obtained today. The wound sites were dressed with ABD pads, and Adolfo wrap's were used to compress from the hand to the axilla. Sugar was then transferred to the postanesthesia care unit for monitoring prior to return to the floor. Date of Procedure: 10/16/24
--- NOTE | 2024-10-16 14:37 | CHAPLAIN ---
I had a brief visit with Sugar while she was watching tv from bed. She shared that her brother has been visiting here and that's been helpful. I explained my rile and offered support.
--- NOTE | 2024-10-16 14:48 | W.ANESPOSTOP ---
Postoperative Evaluation Date, Time and Location Date Performed: 10/16/24 Time Performed: 14:48 Patient Location: PACU Vital Signs Most Recent Imported Vital Signs: Most Recent Vital Signs Temp Pulse Resp BP Pulse Ox 36.9 C 69 16 113/78 97 10/16/24 14:43 10/16/24 14:43 10/16/24 14:43 10/16/24 14:43 10/16/24 14:43 Pain Score Most Recent Pain Score: Most Recent Pain Score Pain Level [Right Arm] 10 10/16/24 09:15 Pain Level 8 10/16/24 14:43 Assessment Mental Status: Awake (Alert & Oriented to Patient Baseline) Airway and Respiratory Function: Patent airway with normal (patient baseline) respiratory exam Cardiovascular Function: Hemodynamically Stable Hydration Status: Adequately Hydrated Nausea & Vomiting: No Nausea or Vomiting Pain: Pain is Moderate or Severe Postoperative Pain Management: Pain being addressed with medication and Ongoing pain, patient will be managed as an inpatient Peripheral Nerve Block: Patient did not receive a nerve block
[2024-10-16] MEDS: Normal Saline Flush 10 ML SYR IVP ×4 (14:59→19:50)
--- NOTE | 2024-10-16 15:16 | CMPROGNOTE_ITS ---
Date of service: 10/16/24 Time of Service: 15:16 Care Management Progress Note Progress Note Text Progress Note Text: Sugar was lying in bed when CM met with her. She stated that she recently went to the OR to have her abscess drained, and that per MD it went well. Per hospitalist, she was transitioned to oral antibiotics, as she had lost IV access. She will be monitored again tonight, and will likely be ready for discharge tomorrow, per report. Sugar was eating chocolate ice cream during the visit, and stated that she feels comfortable staying. CM had sent a referral to [employer] to help her with local resources, and Sugar stated that she spoke to someone from [employer] today; she is happy to have the support. CM will continue to follow. Discharge Potential Discharge Needs: PCP F/U Appt Anticipated Barriers to Discharge: None Identified Patient/Family Education Needs: Review discharge instructions, discuss Ask Me Three Transportation: Private vehicle Plan: Anticipate that Sugar will be discharged once medically stable. She will f/u at [facility] at an appointment that will be made for her prior to discharge. She will transport home via the [facility] bus vs private ride from a friend. CM will continue to follow and to update the plan as needed. Social Determinants of Health Screening Will the Patient Participate in the Screening?: Declined to provide
--- NOTE | 2024-10-16 15:30 | W.ANESVAS ---
Peripheral IV Placement Date Performed: 10/16/24 Procedure Time: 13:40 Requesting Provider: Sen Hinojosa Procedure Location: PACU Sedation Given (Indicate Dose Given): No Sedation given Patient Mental Status: Awake Laterality: Left Insertion Site: Forearm Size & Type: 20 ga. Dressing: IV Dressing Placed Ultrasound: Sterile probe cover and gel used Ultrasound Image Saved?: Yes Number of Attempts (See previous attempts in note section): 1 Procedure Tolerated: No Complications and Patient tolerated well Procedure Outcome: Successful Performed By: Daniele Goldsmith
[2024-10-16 16:58] LABS: Abs Immature Grans 0.22 10^3/uL (0.0-0.06); Absolute Basophil Count 0.05 10^3/uL (0.0-0.2); Absolute Eosinophil Count 0.14 10^3/uL (0.0-0.7); Absolute Lymphocyte Count 1.96 10^3/uL (1.2-3.4); Absolute Monocyte Count 0.58 10^3/uL (0.1-0.8); Absolute Neutrophil Count 6.21 10^3/uL (1.2-6.7); Basophils % 0.5 %; Eosinophils % 1.5 %; HGB 9.1 g/dL (11.2-15.7); Immature Grans % 2.4 %; Lymphocytes % 21.4 %; MCH 24.9 pg (27.0-33.0); MCHC 33.7 % (32.0-36.0); MCV 74 fL (80-95); MPV 9.5 fL (8.0-11.0); Monocytes % 6.3 %; Neutrophils % 67.9 %; Platelet Count 326 10^3/uL (130-400); RBC 3.65 10^6/uL (3.93-5.22); RDW 14.3 % (11.7-14.6); RDW-SD 38.6 fL; WBC 9.16 10^3/uL (4.4-10.8)
[2024-10-16 17:18] LABS: Diff Comment RBC Morph Reviewed; Microcytosis 2+
[2024-10-16] MEDS: Ferrous Sulfate 325 MG TAB PO (18:03)
[2024-10-16] MEDS: LINEZOLID 600 MG/300 ML BAG 300 MG IVPB (19:51)
[2024-10-16] MEDS: cloNIDine 0.1 MG TAB PO (23:58)
[2024-10-17 03:00] VITALS: BP 114/69; PULSE 81; RESP 17; TEMP 36.8; O2SAT 98
[2024-10-17] MEDS: HYDROmorphone 2 MG TAB PO ×2 (04:44→09:20)
[2024-10-17] MEDS: Normal Saline Flush 10 ML SYR IVP ×2 (04:45→08:00)
[2024-10-17 07:00] LABS: Abs Immature Grans 0.19 10^3/uL (0.0-0.06); HCT 27.4 % (36.0-46.0); MCH 25.1 pg (27.0-33.0); MCHC 32.8 % (32.0-36.0); MCV 77 fL (80-95); MPV 9.6 fL (8.0-11.0); Platelet Count 380 10^3/uL (130-400); RBC 3.58 10^6/uL (3.93-5.22); RDW 14.3 % (11.7-14.6); RDW-SD 39.7 fL
[2024-10-17 07:41] LABS: Absolute Eosinophil Count 0.09 10^3/uL (0.0-0.7); Absolute Lymphocyte Count 2.61 10^3/uL (1.2-3.4); Absolute Monocyte Count 0.63 10^3/uL (0.1-0.8); Absolute Neutrophil Count 5.67 10^3/uL (1.2-6.7); Atypical Lymphocytes % 2 %
[2024-10-17 07:49] VITALS: BP 113/70; PULSE 82; RESP 15; TEMP 36.2; O2SAT 96
[2024-10-17] MEDS: Ferrous Sulfate 325 MG TAB PO (08:00)
[2024-10-17] MEDS: Docusate Sodium 100 MG CAP PO (08:00)
[2024-10-17] MEDS: Apixaban 5 MG TAB 10 MG PO (08:01)
[2024-10-17] MEDS: Linezolid 600 MG TAB PO (09:20)
[2024-10-17] MEDS: Docusate Sodium 100 MG/10 ML CUP PO (09:20)
--- NOTE | 2024-10-17 10:01 | W.PM.DS.N ---
Date of service: 10/17/24 Time of Service: 10:01 DS: Diagnosis Discharge Diagnosis (1) Severe sepsis: Status: Acute (2) Cellulitis: Status: Acute (3) Abscess of right upper extremity: Status: Acute (4) HEDY (acute kidney injury): Status: Acute (5) Lactic acidosis: Status: Acute (6) Deep vein thrombosis (DVT) of axillary vein of right upper extremity: Status: Acute (7) IV drug user: Status: Acute (8) Discharge planning issues: Status: Acute Discharge Plan Disposition Patient Disposition: Home Condition: Improving Discharge Details Reason For Visit: Severe sepsis RUE abscess/cellulitis Admit Date/Time: 10/13/24 23:10 Admit Provider: Didier Jaimes Attending Provider: Didier Jaimes Primary Care Provider: None,None Hospital Course Hospital Course: This 29-year-old female with past medical history of hepatitis C, IV drug use,Hx of MRSA infection, depression released from a correctional facility last month presented the emergency department with right upper extremity skin peeling, painful lumps, swelling for about 5 days s/p injection of Suboxone to the RUE. [place] in The ED showed CBC showed a white count of 15,000, creatinine was 1.3, potassium 2.7 and a lactic of 3.3 with repeat 1.3; CT chest and right upper extremity which showed no evidence of cardiopulmonary disease or more specifically sick emboli of the right upper extremity did show right axillary DVT, and ventral soft tissue right upper extremity 2 by 4 x 1 x 6 cm abscess which was drained. Treatment with vancomycin and Zosyn intitiated in the ED. The patient was admitted by the hospitalist for further management of severe sepsis secondary to right upper extremity cellulitis, abscess and right upper extremity DVT. Eliquis was started. Surgical consult was initiated w/o OR initially but d/t the development of subsequent abcesses I&D was completed without complication on 10/16/24. At this time the patient was on Zyvox as per blood and wound cultures growing strep pyogenes and history of MRSA.The patient refused the option of treatment initiation for her opioids dependance and will reconnect with her outpatient service provider.On the days of discharge blood cultures from 10/14 are negative X 48 hours, the patient is afebrile and hemodynamically stable. Pain management done with hydromorphone 2mg d/t allergies to acetaminophen and NSAIDs, order Q12 hours PRN s/p d/c for only 10 pills. Oral iron initiated d/t finding of iron deficiency anemia,Zyvox, Eliquis and bowel management medicines ordered. The patient's brother instructed on dressing change with supplies provided on d/c. Dressing change instruction :Remove Adolfo wrap's. Remove ABDs and gauze. Remove packing from right wrist, right antecubital fossa medial and lateral, right upper arm. Irrigate each wound site with 10 cc of saline solution. Repack with quarter inch iodoform gauze. Apply ABDs, and wrap the arm from the hand to the axilla with Adolfo wrap's. Repeat Twice a day AM and PM. The patient is to f/u with PCP with 7 days and surgery in [address] Colon. Home Meds and New Rx's Prescriptions: New Eliquis 5 mg tablet 5 mg PO BID Qty: 180 0RF Eliquis 5 mg tablet 10 mg PO BID Qty: 14 0RF Rx Instructions: Take 10 mg twice (9 AM- 9PM) daily on the 10/17, 10/18, 10/19, 10/20 Then start taking 5 mg every 12 hours on 10/21 for 3 months--- if uncontrolled bleeding occurs seek medical attention, please linezolid 600 mg tablet 600 mg PO BID Qty: 21 0RF hydromorphone 2 mg tablet 2 mg PO Q12H PRN PRNQty: 10 0RF Rx Instructions: Take orally only Use prior to dressing change for the first 3 days then PRN only - further management as per PCP ferrous sulfate 325 mg (65 mg iron) Tablet 325 mg PO DAILY Qty: 30 0RF docusate sodium [Colace] 100 mg Capsule 100 mg PO TID Qty: 90 0RF Rx Instructions: Until BM then PRN Held fluoxetine [Prozac] 40 mg capsule 40 mg PO DAILY Qty: 60 6RF Hold Instructions: Resume on 10/22/24. 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 Discuss with PCP Patient Comments: not taking Discharge Instructions Referrals: None,None [Primary Care Provider] - (Follow -up with PCP within 7 days of discharge) Sen Hinojosa MD [ [facility] STAFF PHYSICIAN] - (F/u with surgery in outpatient clinic in 2 weeks ) Activity:: Activity as Tolerated Equipment/Supplies:: Dressing supplies Diet:: As Tolerated DS: Summary Time Spent with Patient providing and/or coordinating discharge services: Greater than 30 minutes Status at Discharge Functional status at discharge: independent ambulation Overall status at discharge: patient is progressing back to baseline Mental Status: mental status grossly normal Speech and Movement: speech and movement normal Mood: congruent mood Affect: normal affect Quality:SDOH Health Related Social Needs: No Data to Display Exam Narrative Exam Narrative: Constitutional The patient without acute distress HENMT: Facial structures with normal appearance Neuro:alert and oriented X4, noo focal deficits Resp:Clear lungs bilaterally Cardio: regular rhythm, S1, S2, no murmur, capillary refill<3 sec to RUE digits , positive right radial pulse GI: Abdomen is not distended, soft and non tender, bowel sounds are present : Negative Costovertebral angle tenderness Back/spine/Pelvis: No back tenderness Integumentary: RUE limited redness mid arm and mid- forearm- has not progressed toward shoulder ; improved swelling, dressing DCI Extremities: Still RUE limited flexion/ extension but improving Psych: RASS 0, congruent mood and normal to flat affect. Psych Mental Status: mental status grossly normal Speech and Movement: speech and movement normal Mood: congruent mood Affect: normal affect DS: Data Vitals/I&O Vitals and I&O: Vital Signs Temperature 36.2 C L 10/17/24 07:49 Temperature Source Temporal Artery Scan 10/17/24 07:49 Pulse 82 10/17/24 07:49 Pulse Rhythm Regular 10/14/24 01:03 Pulse 66 10/16/24 14:30 Respiratory Rate 15 10/17/24 07:49 Respiratory Effort Normal 10/14/24 01:03 Respiratory Depth Normal 10/14/24 01:03 Respiratory Pattern Normal 10/14/24 01:03 Blood Pressure 113/70 10/17/24 07:49 Blood Pressure Mean 79 10/16/24 14:30 Blood Pressure Position Sitting 10/13/24 19:46 Pulse Oximetry 96 10/17/24 07:49 Respiratory End-tidal CO2 33 10/16/24 14:30 Oxygen Delivery Method Room Air 10/17/24 07:49 Oxygen Flow Rate 0 10/17/24 07:49 Pain Level 10 10/17/24 07:49 Comment pt requested to be left alone for 3AM vitals 10/15/24 04:30 Intake & Output 10/16/24 10/16/24 10/17/24 11:59 23:59 11:59 Intake Total 610 / 2633.0 2023.0 / 2633.0 Output Total 400 / 400 Balance 210 / 2233.0 2023.0 / 2233.0 Weight 89.8 kg Intake: IV 888.0 / 888.0 Oral 610 / 1745 1135 / 1745 Output: Urine 400 / 400 Other: Urine Color Yellow Yellow Urine Appearance Clear Clear Urine Odor Normal Normal Comment Patient voids ind. in the toilet, still no bm. voids independently Patient voids ind. in toilet. Emesis Description None Data Completed and Pending Labs on day of discharge: Labs from last 24 hours 10/17/24 10/16/24 10/16/24 06:05 16:50 06:13 WBC 9.00 9.16 RBC 3.58 L 3.65 L Hgb 9.0 L 9.1 L Hct 27.4 L 27.0 L MCV 77 L 74 L MCH 25.1 L 24.9 L MCHC 32.8 33.7 RDW 14.3 14.3 Plt Count 380 326 MPV 9.6 9.5 Immature Gran % 0.0 2.4 Neutrophils % 63.0 67.9 Lymphocytes % 27.0 21.4 Atypical Lymphs % 2 Monocytes % 7.0 6.3 Eosinophils % 1.0 1.5 Basophils % 0.0 0.5 Nucleated RBC % 1.0 H 0.0 Absolute Neutrophils 5.67 6.21 Absolute Lymphocytes 2.61 1.96 Absolute Monocytes 0.63 0.58 Absolute Eosinophils 0.09 0.14 Absolute Basophils 0.00 0.05 RBC Morphology See Below Microcytosis 2+ Iron 25 L TIBC 160 L Transferrin % Sat 16 Ferritin 234 Preliminary micro results at discharge 10/14/24 09:10 Blood Culture - Preliminary Blood NO GROWTH 48 HOURS 10/14/24 08:50 Blood Culture - Preliminary Blood NO GROWTH 48 HOURS PFSH All Active Problems (Updated 10/16/24 @ 17:29 by Marita Allen APRN) Discharge planning issues (Acute) Deep vein thrombosis (DVT) of axillary vein of right upper extremity (Acute) IV drug user (Acute) Lactic acidosis (Acute) HEDY (acute kidney injury) (Acute) Abscess of right upper extremity (Acute) Cellulitis (Acute) Severe sepsis (Acute) Encounter for Nexplanon removal (Acute) Hepatitis C antibody test positive (Acute) 12/2020. No viral load detected Patient desires (Acute) Routine screening for STI (sexually transmitted infection) (Acute) Foreign body (Acute) Irregular menses (Acute) Wears glasses (Chronic) with other poor obstetric history (Acute) 2017 IUFD at 37 weeks. Preeclampsia treated with labetalol . Positive UDS at time of delivery. Depression (Chronic) many years. 02/2018 restarted Fluoxetine at time of 6w PP visit. 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 Quit. Tobacco abuse disorder (Acute) Medical History Twin Hx of pre-eclampsia in prior , currently 2016. Present at time of admission for IUFD. Treated with labetalol for several months . 2018. IOL at term for elevated BP. LMP 05/23/2018 Cutaneous abscess of buttock (12/12/16) General counselling and advice on contraception (03/27/18) Declines all BC after 01/2018. Given written info on NFP. Goiter (04/30/13) Abscess of buttock, right Asthma Mild, exercise induced. Several years since use of inhalant. Dysmenorrhea Menorrhagia CSA age 8 Surgical History Tooth extraction [place] teeth age 18. No complications with anesthesia. Cholecystectomy 2008, open Family History Mother Diabetes Essential hypertension Heart disease Diverticula of small intestine Asthma Father Cirrhosis Hypertension Grandmother Diabetes Heart disease Hypertension Asthma Maternal Aunt Heart disease x2 Hypertension Brother Hypertension Social History Smoking/Tobacco Use Status: Current every day Smoking risk assessment performed?: Yes Alcohol Intake: former Drug use: Occasionally Substance use type: heroin Details: 01/17/21. pt reports no use in 3mo. Both she and her brother Frank have quit together Household members: family, children and other Details: Mother and Daughter Jessica &Twins not in her custody (per DCF order) Housing: homeless Number of Children: 3 Communication Needs: None and Corrective Lenses current occupation: Not working. Do you feel safe at home: Yes Do you feel safe in your relationship?: Yes Additional Social history: 12/2020. she and her brother Frank have moved to [facility] to live with youngest brother Arcadio. she and Frank have quit heroin x2mo. Arcadio does not use heroin. Pt's SUSANA Judge is being released from [facility] in 01/2021. Female Reproductive History Menstrual control method: none History History 3 Para 3 Hx # Term Pregnancies 2 Multiple births 1 Hx # Pregnancies 1 Ectopic pregnancies 0 AB induced 0 Hx Number of Living Children 3 AB spontaneous 0 Past Pregnancies Del. Date GA/Weeks # Preg Succ Route Wgt Sex Labor Lgth Anesthesia Location [facility] 12/01[facility]16 37 [facility] No vaginal 3373.593 g Female 8 hrs [facility] - Dr. Tellez 01/14/19 30 Yes vaginal 1757.67 g Female [facility] 01/14/19 30 Yes vaginal 1927.768 g Female Tracy Ruano Delivery Date: 12/01/16 Last Updated by: Tracy Ruano M.D. IUFD diagnosed at presentation. ? name Shavonne. Spontaneous labor delivered vaginally. Diagnosed with preeclampsia and treated with labetalol for several months . Positive UDS at the time of presentation in labor. Delivery Date: 02/12/18 Last Updated by: Tracy Ruano M.D. name: Jessica IOL for gestational HTN Delivery Date: 01/14/19 Last Updated by: Tracy Ruano M.D. Faviola. Transfered to [facility] after delivery 2/2 prematurity. remained x2mo Delivery Date: 01/14/19 Last Updated by: Claribel Chaney. transfered to NICU at [facility] [place] . Discharged after 2mo. Time Spent with Patient Time Spent with Patient: 70-84 minutes4 Time was spent: preparing to see the patient(eg.review tests), obtaining and/or reviewing separately otained hiistory, ordering medications,tests, procedures, referring, communicating with other health child care director, indepentently interpreting results, counseling the patient and care coordination
[2024-10-17 11:21] VITALS: BP 108/68; PULSE 67; RESP 16; TEMP 36.6; O2SAT 98
[2024-10-17 12:47] LABS: Diff Comment Manual Differential; RBC Morphology Normal
--- NOTE | 2024-10-17 15:01 | PDOC.CMDIS ---
Date of service: 10/17/24 Time of Service: 15:01 LACE Index Scoring Tool Questions: Length of Stay (in days): 4 - 6 Was the patient admitted via the E.D.?: Yes E.D. Visits: 0 Answers: Total Score: 7 Risk of Readmission: Low Risk Care Management Discharge Plan Reason for Hospitalization: severe sepsis, RUE abscess, cellulitis Discharge Plan: Sugar returned to the community with no services. EVAN referred her to [facility] for support with community resources including obtaining a local PCP, transportation, and supplies needed for wound care. She was sent with some supplies for her dressing changes, and her brother was trained by staff to help assist her. She transported via private vehicle by a friend. She will follow up with the business information consultant provider, and her discharge plan of care. She was happy to be discharged. Patient/Family Education Needs: Review discharge instructions and limitations, discussion of self care needs including ask me three. SDOH Health Related Social Needs: No Data to Display
== END 2024-10-17 12:36 | disposition home or self-care (01) | DRG 872 ==
LOC: ER 10-14 00:57 → MS 10-14 00:59
PROVIDERS: Surgery; Admitting Provider Family Medicine; Emergency Provider Physician Assistant; Responsible Provider Nurse Practitioner Acute Care; Visit Provider Family Medicine
PROC: 0H9DXZZ Drainage of Right Lower Arm Skin, External Approach (ICD-10-PCS; CPT 10061; principal; 2024-10-16 12:45)
DX: A40.0 Sepsis due to streptococcus, group A (principal); N17.9 Acute kidney failure, unspecified; E87.20 Acidosis, unspecified; L02.413 Cutaneous abscess of right upper limb; I82.621 Acute embolism and thrombosis of deep veins of right upper extremity; Z59.01 Sheltered homelessness; L03.113 Cellulitis of right upper limb; F11.20 Opioid dependence, uncomplicated; R65.20 Severe sepsis without septic shock; E03.9 Hypothyroidism, unspecified; N92.6 Irregular menstruation, unspecified; F32.A Depression, unspecified; F17.210 Nicotine dependence, cigarettes, uncomplicated; G89.29 Other chronic pain; J45.990 Exercise induced bronchospasm; F14.90 Cocaine use, unspecified, uncomplicated; Z86.14 Personal history of Methicillin resistant Staphylococcus aureus infection; Z86.19 Personal history of other infectious and parasitic diseases
CPT/HCPCS: 10061; 36410; 00123; 10060; 36415; 36416; 71275; 80048; 80053; 80307; 81025; 85027; 85652; 87040; 87077; 93005; 96361; 96365; 96366; 96367; 96375; 99291; 73201; 80202; 82728; 83540; 83550; 83605; 83735; 84484; 84703; 85025; 86140; 87070; 87205; 93010; 99223; 99233; 99239; J0692; J1171; J2004; J2020; J2250; J2543; J3010; J3370; J3480; J3490